=== PATIENT | female | born 1985 | race Caucasian/White ===

== ENCOUNTER → 2019-12-11 08:46 | Outpatient (BNVA) | payer OTHER, SELFPAY | PROVIDERS: PCP Nurse Practitioner Family; Visit Provider Dietitian, Registered ==

== ENCOUNTER 2019-12-23 08:20 | Outpatient (REF) | payer OTHER, SELFPAY ==
--- NOTE | 2019-12-23 | US_ITS ---
EXAMINATION: US COMPLETE ABDOMEN WITH LIVER ELASTOGRAPHY CLINICAL INFORMATION: Obesity. COMPARISON: None. TECHNIQUE: Real-time imaging of the abdominal viscera. Noninvasive ultrasound liver fibrosis assessment is performed using Amina ElastPQ point quantification shear wave elastography (pSWE) with a 5 MHz transducer. Multiple elastography samples are obtained. FINDINGS: PANCREAS: Normal. The visualized pancreatic head and body are normal in appearance. The remainder of the pancreas is obscured from visualization by the overlying bowel gas. ABDOMINAL AORTA: The proximal, middle, and distal aortic segments are normal in caliber. INFERIOR VENA CAVA: Visualized portions are normal. LIVER: Normal. The liver demonstrates normal size, contour and increased echogenicity. No focal lesion or intrahepatic biliary duct dilatation. The right lobe measures 17.4 cm in length. The left lobe measures 7.8 cm in length. There is normal antegrade flow seen in the main portal vein on Doppler exam. Shear wave elastography provides a median stiffness of 1.11 m/s (reference: normal median stiffness is 0.81 - 1.22 m/s). The IQR/median stiffness to assess sampling precision is 0.26 (reference: optimal IQR/median stiffness is under 0.3). GALLBLADDER: Gallbladder has been surgically removed. COMMON BILE DUCT: Normal in caliber measuring 0.6 cm in diameter. RIGHT KIDNEY: Normal. No hydronephrosis. No renal calculi or focal parenchymal lesions. The kidney measures 11.2 cm in maximum dimension. LEFT KIDNEY: Normal. No hydronephrosis. No renal calculi or focal parenchymal lesions. The kidney measures 11.0 cm in maximum dimension. SPLEEN: Normal. The spleen measures 8.7 cm in maximum dimension. FREE FLUID: None. IMPRESSION: 1. Hepatic steatosis with normal hepatopedal flow seen in the portal vein on Doppler exam. Gallbladder has been surgically removed. 2. Elastography: Liver elastography measurements are within normal (METAVIR Stage F0).
--- NOTE | 2019-12-23 09:20 | FL_ITS ---
EXAMINATION: XR GI SERIES CLINICAL INFORMATION: Obesity. Preop evaluation. COMPARISON: None TECHNIQUE: Routine upper GI air contrast study was performed. FINDINGS: Following oral administration of thick barium and effervescent granules, there is normal propagation bolus from the oral cavity through the pharynx, esophagus into stomach without any evidence of obstruction, narrowing or stricture. The gastroesophageal junction is widely patent. On placing patient supine and prone, there is a small hiatal hernia with mild reflux. In recumbent position, the patient had a single episode of large volume vomiting. The course, caliber and peristalsis of the stomach and the duodenal bulb is normal. FLUOROSCOPY TIME: 1.3 minutes DOSE AREA PRODUCT: 34.110 Gy-cm2 IMPRESSION: Small hiatal hernia with mild gastroesophageal reflux.
== END 2019-12-23 08:21 | disposition home or self-care (01) ==
LOC: HO.US 08:20
PROVIDERS: Visit Provider Surgery
DX: Z20.818 Contact with and (suspected) exposure to other bacterial communicable diseases (principal); E66.01 Morbid (severe) obesity due to excess calories; Z68.42 Body mass index [BMI] 45.0-49.9, adult; K21.9 Gastro-esophageal reflux disease without esophagitis; Z71.3 Dietary counseling and surveillance
CPT/HCPCS: 74240; 76705; 76981; 99213

== ENCOUNTER 2019-12-30 11:08 | Outpatient (REF) | payer OTHER, SELFPAY ==
[2019-12-30 12:32] LABS: MANUAL DIFF FLAG NO
[2019-12-30 12:42] LABS: Basophils Absolute Auto 0.1 X10*3/uL (0.0-0.2); Basophils Percent Auto 0.6 % (0-2); Eosinophils Absolute Auto 0.1 X10*3/uL (0.0-0.4); Eosinophils Percent Auto 1.4 % (0-4); Hematocrit 43.1 % (37-47); Hemoglobin 14.4 g/dl (12.0-16.0); Imm Gran Abs Auto 0.03 X10*3/uL (0.00-0.03); Imm Gran Pct Auto 0.4 % (0.0-0.4); Lymphocytes Absolute Auto 2.5 X10*3/uL (1.2-4.9); Lymphocytes Percent Auto 31.8 % (20-40); Mean Corpuscular HGB Conc 33.4 g/dl (31.0-35.0); Mean Corpuscular Hemoglobin 30.1 pg (27.0-33.0); Mean Platelet Volume 12.3 fL (9.4-12.3); Monocytes Absolute Auto 0.5 X10*3/uL (0.1-1.2); Monocytes Percent Auto 6.7 % (2-11); Neutrophils Absolute Auto 4.6 X10*3/uL (2.0-8.3); Neutrophils Percent Auto 59.1 % (45-73); Platelet Count 218 X10*3/uL (160-400); Red Blood Count 4.79 X10*6/uL (4.20-5.50); Red Cell Distribution Width 12.5 % (11.0-16.0); White Blood Count 7.8 X10*3/uL (4.8-10.8)
[2019-12-30 13:13] LABS: Alanine Aminotransferase 29 U/L (0-31); Albumin Level 4.5 g/dL (3.5-5.0); Alkaline Phosphatase 79 U/L (39-117); Anion Gap 17 (12-20); Aspartate Amino Transferase 18 U/L (5-31); Bilirubin Total 0.5 mg/dL (0.0-1.0); Blood Urea Nitrogen 12 mg/dL (9-16); C Reactive Protein 0.68 mg/dL (< or = 0.50); Calcium 9.2 mg/dL (8.4-10.2); Carbon Dioxide 21 mmol/L (22-29); Chloride 104 mmol/L (96-108); Cholesterol 155 mg/dL; Estimated Glomerular Filt Rate > 60; Glucose Random 90 mg/dL (60-115); HDL Cholesterol 53 mg/dL; Iron 68 mcg/dL (30-160); LDL Cholesterol Calculated 91 mg/dl; Percent Iron Saturation 19 % (15-50); Potassium 4.3 mmol/l (3.3-5.1); Sodium 138 mmol/L (135-145); Total Iron Binding Capacity 360 mcg/dL (228-428); Total Protein 7.8 g/dL (6.5-8.0); Triglycerides 58 mg/dL; Unsaturated Iron Binding 292 ug/dL
[2019-12-30 13:24] LABS: Ferritin 32 ng/mL (10-122); Vitamin D 25-OH Total 8.4 ng/mL (>30)
[2019-12-30 13:44] LABS: Estimated Average Glucose 91 mg/dL; Hemoglobin A1c % 4.8 %
[2019-12-30 14:23] LABS: Folate 11.1 ng/mL (> or = 4.0); Vitamin B12 429 pg/mL (200-900)
[2019-12-31 12:51] LABS: Insulin Level Total 8.2 uIU/mL
[2019-12-31 21:21] LABS: Calcium (PTHI) 9.7 mg/dL (8.6-10.2); PTHI 42 pg/mL (14-64)
[2020-01-02 14:42] LABS: Zinc 85 mcg/dL (60-130)
[2020-01-03 13:11] LABS: Vitamin A 29 mcg/dL (38-98); Vitamin B1 8 nmol/L (8-30)
== END 2019-12-30 11:09 | disposition home or self-care (01) ==
LOC: HO.LAB 11:08
PROVIDERS: Visit Provider Surgery
DX: E66.01 Morbid (severe) obesity due to excess calories (principal)
CPT/HCPCS: 36415; 80053; 80061; 82306; 82607; 82728; 82746; 83036; 83525; 83540; 83970; 84425; 84443; 84590; 84630; 85025; 86140

== ENCOUNTER → 2020-01-08 08:26 | Outpatient (BNVA) | payer OTHER, SELFPAY | PROVIDERS: PCP Nurse Practitioner Family; Visit Provider Dietitian, Registered | DX: Z76.89 Persons encountering health services in other specified circumstances (principal) ==

== ENCOUNTER → 2020-01-15 08:57 | Outpatient (BNVA) | payer OTHER, SELFPAY | PROVIDERS: PCP Nurse Practitioner Family; Visit Provider Physician Assistant | DX: Z76.89 Persons encountering health services in other specified circumstances (principal) ==

== ENCOUNTER → 2020-01-21 08:20 | Outpatient (BNVA) | payer OTHER, SELFPAY | PROVIDERS: PCP Nurse Practitioner Family; Referring Provider Nurse Practitioner Family; Visit Provider Dietitian, Registered | DX: Z76.89 Persons encountering health services in other specified circumstances (principal) ==

== ENCOUNTER → 2020-01-29 08:07 | Outpatient (BNVA) | payer OTHER, SELFPAY | PROVIDERS: PCP Nurse Practitioner Family; Referring Provider Nurse Practitioner Family; Visit Provider Surgery | DX: Z76.89 Persons encountering health services in other specified circumstances (principal) ==

== ENCOUNTER 2020-01-31 09:35 | Outpatient (REF) | payer OTHER, SELFPAY ==
--- NOTE | 2020-01-31 09:38 | CT_ITS ---
EXAMINATION: CT ABDOMEN AND PELVIS WITH CONTRAST CLINICAL INFORMATION: Moderate, severe obesity. COMPARISON: None TECHNIQUE: Multidetector volumetric images were obtained from the superior aspect of the liver through the pubic symphysis following administration 85 mL of Omnipaque 350 intravenous contrast. Sagittal and coronal reformatted images were obtained on the technologist's workstation. Oral contrast: No This CT examination was performed using dose optimization techniques as appropriate, variously including the following: *Automated exposure control *Adjustment of mA and/or kV according to patient size (this includes techniques or standardized protocols for targeted exams where dose is matched to indication/reason for exam; i.e. extremities or head) *Use of iterative reconstruction technique DLP: 977 mGy-cm FINDINGS: LUNG BASES: The lung bases are clear. The heart size is normal. There is a small hiatal hernia. LIVER, GALLBLADDER, AND BILIARY TREE: The liver is normal in size, shape, and attenuation. There is a punctate calcification of right hepatic lobe. No focal lesion seen. The gallbladder has been surgically removed. PANCREAS: Unremarkable. SPLEEN: Unremarkable. ADRENAL GLANDS: Unremarkable. KIDNEYS AND URETERS: The kidneys are normal in size, shape, and attenuation. No hydronephrosis, hydroureter, or calculi seen. No perinephric stranding. BLADDER: Unremarkable. GASTROINTESTINAL TRACT: There is oral contrast opacifying colon and small bowel loops which are normal caliber. No obstruction or narrowing seen. No inflammatory process seen. ABDOMINAL WALL: No significant hernia is appreciated. LYMPH NODES: Normal. VASCULAR: There is a prominent right ovarian vein. The abdominal aorta is normal caliber. PELVIC VISCERA: The uterus is anteverted. There are small hypodense left ovarian lesions, likely cysts that measure 4 Hounsfield units. Largest cyst measures 1.5 cm. OSSEOUS STRUCTURES: No lytic or sclerotic process seen. CT/CT abdomen pelvis w con IMPRESSION: No acute intra-abdominal process seen. Small hiatal hernia, cholecystectomy change and left ovarian small cysts.
[2020-01-31] MEDS: iohexoL 350 MG/ML 100 ML INFUS..BTL 85 ML IV (14:15)
== END 2020-01-31 09:36 | disposition home or self-care (01) ==
LOC: HO.CT 09:35
PROVIDERS: Visit Provider Surgery
DX: R10.11 Right upper quadrant pain (principal); Z98.84 Bariatric surgery status
CPT/HCPCS: 74177; Q9967

== ENCOUNTER → 2020-02-21 08:09 | Outpatient (BNVA) | payer OTHER, SELFPAY | PROVIDERS: Visit Provider Dietitian, Registered | DX: Z76.89 Persons encountering health services in other specified circumstances (principal) ==

== ENCOUNTER → 2020-03-11 08:18 | Outpatient (BNVA) | payer OTHER, SELFPAY | PROVIDERS: Visit Provider Dietitian, Registered | DX: Z76.89 Persons encountering health services in other specified circumstances (principal) ==

== ENCOUNTER 2020-10-01 14:29 | Emergency (ER) | payer OTHER, SELFPAY ==
[2020-10-01 14:51] VITALS: BP 136/74; PULSE 90; RESP 18; TEMP 36.8; O2SAT 99; BMI 45.7
--- NOTE | 2020-10-01 17:12 | ED_ITS ---
HPI - Headache General Chief Complaint: Headache Stated Complaint: Headaches facial pain Time Seen by Provider: 10/01/20 16:49 Source: patient Mode of arrival: ambulatory Limitations: no limitations History of Present Illness HPI Narrative: 34-year-old female here with complaints of several days of cough sore throat, sinus congestion and pressure now with right-sided headache with pressure and pain in the sinuses. Yesterday had some diarrhea and vomiting but none today. No abdominal pain, fevers, chills. Patient has not received her COVID vaccine. She denies any known sick contacts Related Data Home Medications Medication Instructions Recorded Confirmed acetaminophen 500 mg tablet 500 mg PO Q6H PRN 01/10/20 (Tylenol Extra Strength) butalbital 50 mg-acetaminophen 325 1 cap PO Q4H PRN 01/10/20 mg-caffeine 40 mg-codeine 30 mg cap Previous Rx's Medication Instructions Recorded docusate sodium 100 mg capsule 100 mg PO DAILY #30 cap 01/10/20 (Colace) pantoprazole 40 mg tablet,delayed 40 mg PO DAILY #30 tab 01/10/20 release pantoprazole 40 mg tablet,delayed 40 mg PO DAILY #30 tab 01/27/20 release amoxicillin 875 mg-potassium 1 tab PO Q12H #14 tab 10/01/20 clavulanate 125 mg tablet (Augmentin) Allergies Allergy/AdvReac Type Severity Reaction Status Date / Time aspirin [ASA] Allergy Unknown SWELLING Unverified 11/21/19 19:44 Review of Systems Review of Systems: Yes all other systems are reviewed and are negative Constitutional: Constitutional: Reports no additional constitutional complaints, Denies body ache(s), Denies chills, Denies fever(s), Reports headache(s) and Denies weakness Eyes: Eyes: Reports no additional eye complaints and Denies change in vision ENT: Reports system reviewed and no additional complaints, except as documented, Denies dizziness, Reports facial pain, Reports headache(s), Reports nasal congestion, Denies nasal discharge, Denies neck pain, Reports sinus pain and Reports sinus pressure Cardiovascular: Cardiovascular: Reports no additional cardiovascular complaints, Denies chest pain, Denies leg edema and Denies dyspnea Respiratory: Respiratory: Reports no additional respiratory complaints, Denies cough and Denies dyspnea Gastrointestinal: Gastrointestinal: Reports no additional gastrointestinal complaints, Denies abdominal pain, Reports diarrhea, Denies nausea and Reports vomiting Genitourinary: Genitourinary: Reports no additional female genitourinary comp laints and Denies urinary incontinence Musculoskeletal: Musculoskeletal: Reports no additional musculoskeletal complaints, Denies back pain, Denies arthralgias, Denies joint swelling, Denies neck pain, Denies numbness and Denies tingling Integumentary/Breasts: Skin/Breast: Reports system reviewed and no additional complaints, except as docu and Denies rash Neurologic: Reports system reviewed and no additional complaints, except as documented, Denies Abnormal speech present, Denies dizziness, Reports headache(s), Denies numbness, Denies tingling and Denies weakness PMFSH Past Medical History Attestation statement: The following information was validated with the patient. Source: old records reviewed and nursing notes reviewed Medical History Morbid obesity Surgical History S/P laparoscopic cholecystectomy S/P tubal ligation Family History Family History Father Lung cancer Mother No problems noted. Sister No problems noted. Sister No problems noted. Son No problems noted. Daughter No problems noted. Social History Social History Alcohol intake: never Advance Directives: No Advance Directives Information Provided: No Patient : No Physical Exam Vital Signs: Vital Signs: Last Vital Signs Temp 98.2 F 10/01/20 14:51 Pulse 90 10/01/20 14:51 Resp 18 10/01/20 14:51 BP 136/74 10/01/20 14:51 Pulse Ox 99 10/01/20 14:51 Body Mass Index 45.7 Const: General: cooperative, healthy appearing, comfortable and no acute distress Orientation/consciousness: patient oriented x3 Limitations: no limitations HENMT: Head: Yes normal to inspection Ears: hearing grossly normal bilaterally and TM's normal bilaterally General nose exam: Normal external nose present and Abnormal mucous membranes and turbinates present Face and sinus: Yes normal facial exam, Yes sinus tenderness (Right maxillary frontal) and Yes Facial tenderness on exam of face and sinuses Mouth: Normal oral and palatal mucosa present Throat: Yes posterior oropharynx normal, Yes tonsils normal and Yes uvula midline Eyes: General: appearance normal, both eyes and all related structures Pupils: Equal, round and reactive pupils present Neck: Neck: Yes normal visual inspection, Yes full ROM and Yes no lymphadenopathy Chest: Chest palpation & inspection: normal inspection of the chest Resp: Effort & Inspection: normal respiratory effort Auscultation: clear to auscultation bilaterally Cardio: Rate: regular rate Rhythm: regular rhythm Peripheral pulses: Peripheral pulses 2+ throughout GI: Inspection: Yes normal to inspection Palpation (GI): Soft to palpation and nontender Auscultation: normal bowel sounds Back/Spine/Pelvis: Thoracic/Lumbar Spine: thoracic and lumbar spine normal to inspection Skin: General skin exam: no rashes or lesions noted Neuro: General: patient oriented x3, no focal motor deficits and normal sensation to monofilament Cranial nerves: Yes Equal, round and reactive pupils present Cognition (Neuro): normal cognition Speech: No Abnormal speech present Gait exam (Neuro): Normal gait present Motor exam (neuro): 5/5 motor strength present throughout Extrem: General: Yes normal to inspection Course Course Course Narrative: 34-year-old female here with several days of sinus pressure, sinus pain, nasal congestion, headache, vomiting, diarrhea now with persistent right-sided headache and more focal pain in the right sinus. Exam is consistent with sinusitis. Likely underlying virus which is triggered symptoms.. Patient feels like she strained to have a migraine. Normal neuro exam. Will check COVID screen. Give dose of Augmentin and Fioricet here. 1839-Continued IRWIN, likely from sinusitis but patient has h/o migraines and feels similar. Will give benadryl, reglan, NSB and re-asssess. 1899-Sign out to Belkis VALE pending above. MDM - Headache Medical Records Attestation: I reviewed the patient's medical records. Lab Data Attestation: I reviewed the patient's lab results. Labs: Lab Results 10/01/20 Range/Units 17:11 COVID-19 (FABIO) Negative (Negative) COVID-19 Clin Com See Note Discharge Plan Discharge Clinical Impression: Sinusitis Patient Disposition: Home, Self-Care Instructions: Sinusitis (ED) Additional Instructions: Increase fluids, rest Covid screen negative Prescriptions: New amoxicillin-pot clavulanate [Augmentin] 875-125 mg tablet 1 tab PO Q12H Qty: 14 RF: 0 No Action pantoprazole 40 mg tablet,delayed release (DR/EC) 40 mg PO DAILY Qty: 30 RF: 2 acetaminophen [Tylenol Extra Strength] 500 mg tablet 500 mg PO Q6H PRNRF: 0 suvwbgxleh-amdijyypze-vch-cod [id number] mg capsule 1 cap PO Q4H PRNRF: 0 docusate sodium [Colace] 100 mg capsule 100 mg PO DAILY Qty: 30 RF: 2 pantoprazole 40 mg tablet,delayed release (DR/EC) 40 mg PO DAILY Qty: 30 RF: 2 Referrals: Physician,Unknown [Primary Care Provider] - 2 days
[2020-10-01] MEDS: Butalb/Acetamin/Caff 50/325/40 TABLET 1 TAB PO (17:33)
[2020-10-01] MEDS: Amoxicillin/Potassium Clav 875 MG TABLET PO (17:33)
[2020-10-01 17:34] LABS: COVID-19 Test Negative (Negative)
[2020-10-01] MEDS: diphenhydrAMINE HCL 50 MG/ML VIAL 25 MG IVPUSH (19:28)
[2020-10-01] MEDS: Metoclopramide HCl 10 MG/2 ML VIAL IVPUSH (19:28)
[2020-10-01] MEDS: 0.9 % Sodium Chloride 1,000 ML 999 ML IV (19:28)
[2020-10-01 19:29] VITALS: BP 129/74; PULSE 86; RESP 18; O2SAT 98
== END 2020-10-01 20:39 | disposition home or self-care (01) ==
PROVIDERS: Nurse Practitioner Family; Emergency Provider Emergency Medicine Emergency Medical Services
DX: J32.9 Chronic sinusitis, unspecified (principal); Z20.822 Contact with and (suspected) exposure to COVID-19; Z79.899 Other long term (current) drug therapy
CPT/HCPCS: 36415; 87635; 96365; 96375; 99284; J1200; J2765

== ENCOUNTER → 2021-03-19 11:14 | Outpatient (BNVA) | payer OTHER, SELFPAY | PROVIDERS: Visit Provider Physician Assistant Surgical ==

== ENCOUNTER 2021-04-21 10:16 | Outpatient (REF) | payer OTHER, SELFPAY ==
[2021-04-22 14:32] LABS: H Pylori Breath Test Negative (Negative)
== END 2021-04-21 10:17 | disposition home or self-care (01) ==
LOC: HO.LNP 10:16
PROVIDERS: Physician Assistant Surgical; PCP Physician Assistant; Referring Provider Physician Assistant; Visit Provider Physician Assistant
DX: Z01.818 Encounter for other preprocedural examination (principal)
CPT/HCPCS: 83013; 99211

== ENCOUNTER 2021-05-03 05:32 | Emergency (ER) | payer OTHER, SELFPAY ==
[2021-05-03 05:36] VITALS: BMI 44.1
[2021-05-03 05:40] VITALS: BP 117/72; PULSE 97; RESP 18; TEMP 36.8; O2SAT 97
[2021-05-03] MEDS: Lidocaine HCl 2 % MPF 5 ML VIAL 15 ML INFILTRATI (06:20)
[2021-05-03] MEDS: Ketamine HCl 500 MG/5 ML VIAL 200 MG IM ×2 (06:20→06:50)
--- NOTE | 2021-05-03 06:37 | PC.NURSE ---
provider into assess pt, medication per mar.
--- NOTE | 2021-05-03 06:44 | PC.NURSE ---
provider in to drain abscess. Air cleaned and dried.
[2021-05-03] MEDS: HYDROmorphone HCl 1 MG/ML SYRINGE IM (06:45)
--- NOTE | 2021-05-03 06:46 | ED_ITS ---
HPI - Skin/Abscess/Foreign Bdy General Chief complaint: Skin/Abscess/Foreign Body Stated complaint: abscess Time Seen by Provider: 05/03/21 05:58 Source: patient Mode of arrival: ambulatory Limitations: no limitations History of Present Illness HPI narrative: Patient comes to emergency room complaining of left Bartholin's cyst. Patient states it has been there for 6 days. Patient denies fever chills. Patient t ried popping it herself approximately 2 days ago. Patient has been using warm compresses Related Data Home Medications Medication Instructions Recorded Confirmed acetaminophen 500 mg tablet 500 mg PO Q6H PRN 01/10/20 (Tylenol Extra Strength) butalbital 50 mg-acetaminophen 325 1 cap PO Q4H PRN 01/10/20 mg-caffeine 40 mg-codeine 30 mg cap Previous Rx's Medication Instructions Recorded docusate sodium 100 mg capsule 100 mg PO DAILY #30 cap 01/10/20 (Colace) pantoprazole 40 mg tablet,delayed 40 mg PO DAILY #30 tab 01/10/20 release pantoprazole 40 mg tablet,delayed 40 mg PO DAILY #30 tab 01/27/20 release amoxicillin 875 mg-potassium 1 tab PO Q12H #14 tab 10/01/20 clavulanate 125 mg tablet (Augmentin) oxycodone 5 mg tablet 5 mg PO BID PRN #7 tab 05/03/21 Allergies Allergy/AdvReac Type Severity Reaction Status Date / Time aspirin [ASA] Allergy Unknown SWELLING Verified 05/03/21 05:36 Review of Systems Review of Systems: Constitutional : No Weight loss, No Fever, No Chills, No Night Sweats, No Fatigue, No Malaise ENT/Mouth : No Hearing loss, No Ear Pain, No Nasal Congestion, No Sinus Pain, No Hoarseness, No sore throat, No Rhinorrhea, No Swallowing Difficulty Eyes: No Eye Pain, No Swelling, No Redness, No Foreign Body, No Discharge, No Vision Changes Cardiovascular : No Chest Pain, No SOB, No Dyspnea on Exertion, No Orthopnea, No Edema, No Palpitations Respiratory : No Cough, No Sputum, No Wheezing, No Smoke Exposure, No Dyspnea Gastrointestinal : No Nausea, No Vomiting, No Diarrhea, No Constipation, No abdominal Pain, No Hematochezia, No Melena Genitourinary : Complaining of a Bartholin's cyst in the left labia, No Dysuria, No Urinary Frequency, No Hematuria, No Urinary Incontinence, No Urgency, No Flank Pain, No Urinary Flow Changes, No Hesitancy Musculoskeletal : No joint pain, No Myalgias, No Joint Swelling Skin : No Skin Lesions, No rash Neuro : No Weakness, No Numbness, No Paresthesias, No Loss of Consciousness, No Dizziness, No Headache Psych : No Anxiety/Panic, No Depression, No SI/HI/AH/VH, No Social Issues, Heme/Lymph: No Bruising, No Bleeding,No Lymphadenopathy Endocrine : No Polyuria, No Polydipsia, No Temperature Intolerance [facility] Past Medical History Medical History Morbid obesity Surgical History S/P laparoscopic cholecystectomy S/P tubal ligation Family History Family History Father Lung cancer Mother No problems noted. Sister No problems noted. Sister No problems noted. Son No problems noted. Daughter No problems noted. Social History Social History Alcohol intake: never Patient Tobacco Use Status: Never used Tobacco Use of substances other than those prescribed or required for medical reasons: No Advance Directives: No Advance Directives Information Provided: Yes Physical Exam Vital Signs: Vital Signs: Last Vital Signs Temp 98.3 F 05/03/21 05:40 Pulse 90 05/03/21 06:47 Resp 18 05/03/21 06:47 BP 134/78 05/03/21 06:47 Pulse Ox 94 05/03/21 06:47 BMI result Body Mass Index 44.1 Const: Other: Appearance: Alert. Oriented X3. No acute distress. Eyes: Pupils equal, round and reactive to light. ENT: Pharynx normal. Neck: Normal inspection. Neck supple. No lymph nodes noted. No crepitus CVS: Normal heart rate and rhythm. Pulses normal. Normal S1 and S2 Respiratory: No respiratory distress. Breath sounds normal. No Wheezing. No rales Abdomen: Soft and nontender. No rigidity. No distention. : Patient has a large Bartholin's cyst, approximately 4 cm x 4 cm, very tender to touch Skin: Skin warm and dry. Normal skin color. Normal skin turgor. Extremities: No lower extremity edema. No lower extremity edema. No Lacerations. No Rash Neuro: Oriented X 3. No motor deficit. No sensory deficit. Moving all extermities. No slurred speech. Course Course Course Narrative: Patient states that she is very anxious, patient states that she would like to be sedated. I discussed with the patient again use IM ketamine, patient agreed and signed consent for procedure, drainage of left Bartholin's cyst. Patient needed 400 mg of ketamine, 1 mg of Dilaudid, local lidocaine Cyst was drained successfully. I discussed with the patient that she needs to follow-up with her OBGYN. The drain will have to stay approximately 2 weeks, possibly more. Patient is currently recuperating. Patient is awake, she may be discharged. Physician observation started at 07:00 Sign-out given to Dr. Metzger Procedures Abscess I/D Site: bartholin's gland Side (if applicable): left Sedation/analgesia: other (Ketamine for 400 mg IM) Local Anesthetic: lidocaine 2% Amount of anesthesia used (mL): 7 Technique: incised with blade Amount of fluid expressed (mL): 40 Sent for culture/gram staining?: No Irrigation: No Packing used?: vick drain Complications: pain Discharge Plan Discharge Clinical Impression: Abscess of Bartholin's gland Patient Disposition: Home, Self-Care Instructions: Bartholin Cyst (ED), Incision and Drainage (ED) Additional Instructions: The drain needs to stay in place for at least the next 2 weeks. Please follow- up with your OBGYN. Please call in the next couple of days to schedule an appointment. Please follow-up with your primary care physician tomorrow. If you have any worsening or new symptoms, please return to the emergency room or call 911 Prescriptions: New oxycodone 5 mg tablet 5 mg PO BID PRN (Reason: pain) Qty: 7 0RF No Action pantoprazole 40 mg tablet,delayed release (DR/EC) 40 mg PO DAILY Qty: 30 2RF amoxicillin-pot clavulanate [Augmentin] 875-125 mg tablet 1 tab PO Q12H Qty: 14 0RF acetaminophen [Tylenol Extra Strength] 500 mg tablet 500 mg PO Q6H PRN0RF anhkulkeni-gozqucvgxo-eis-cod 20-707-33-30 mg capsule 1 cap PO Q4H PRN0RF docusate sodium [Colace] 100 mg capsule 100 mg PO DAILY Qty: 30 2RF pantoprazole 40 mg tablet,delayed release (DR/EC) 40 mg PO DAILY Qty: 30 2RF Referrals: Genaro Johnson MD [Physician] - 2 days Stand Alone Forms: Work/School Release
[2021-05-03 06:47] VITALS: BP 134/78; PULSE 90; RESP 18; O2SAT 94
[2021-05-03 07:16] VITALS: BP 112/59; PULSE 88; RESP 14; TEMP 36.8; O2SAT 93
--- NOTE | 2021-05-03 08:22 | PC.NURSE ---
pt vomited sm amt of yellow fluid, 02 sat 94% on 2l/m via n/c.
[2021-05-03] MEDS: Ondansetron ODT 4 MG TAB.RAPDIS TRANSLINGU (09:20)
--- NOTE | 2021-05-03 09:20 | PC.NURSE ---
pt c/o nausea, med x 1 with zofran 4mg odt
[2021-05-03 11:16] VITALS: BP 106/56; PULSE 82; RESP 17; TEMP 36.7; O2SAT 97
[2021-05-03] MEDS: 0.9 % Sodium Chloride 1,000 ML 999 ML IV (11:21)
[2021-05-03] MEDS: diphenhydrAMINE HCL 50 MG/ML VIAL 25 MG IVPUSH (11:22)
[2021-05-03] MEDS: Metoclopramide HCl 10 MG/2 ML VIAL 5 MG IVPUSH (11:22)
[2021-05-03 12:37] VITALS: BP 111/54; PULSE 89; RESP 17; TEMP 36.8; O2SAT 100
== END 2021-05-03 13:59 | disposition home or self-care (01) ==
PROVIDERS: Emergency Provider Emergency Medicine
DX: N75.0 Cyst of Bartholin's gland (principal); R11.2 Nausea with vomiting, unspecified; Z98.890 Other specified postprocedural states
CPT/HCPCS: 56420; 96361; 96372; 96374; 96375; 99284; J1170; J1200; J2765

== ENCOUNTER → 2021-05-07 08:06 | Outpatient (BNVA) | payer OTHER, SELFPAY | PROVIDERS: Visit Provider Surgery ==

== ENCOUNTER 2021-05-10 10:17 | Outpatient (REF) | payer OTHER, SELFPAY ==
--- NOTE | ~2021-05-10 | XR_ITS ---
EXAMINATION: XR chest 2V CLINICAL INFORMATION: Reason for Exam E66.01 - Morbid (severe) obesity due to excess calories COMPARISON: None TECHNIQUE: 2 views of the chest XR/XR chest 2V FINDINGS/IMPRESSION: Clear lungs. No pneumothorax. No pleural effusion. Normal cardiomediastinal silhouette. Right upper quadrant cholecystectomy clips.
--- NOTE | 2021-05-10 11:22 | ECG_ITS ---
Test Reason : E66.01 Blood Pressure : / mmHG Vent. Rate : 081 BPM Atrial Rate : 081 BPM P-R Int : 122 ms QRS Dur : 080 ms QT Int : 370 ms P-R-T Axes : 037 006 031 degrees QTc Int : 429 ms Normal sinus rhythm Normal ECG No previous ECGs available Referred By: Cristhian Elias Electronically Signed By:LUPIS ONOFRE MD
== END 2021-05-10 10:18 | disposition home or self-care (01) ==
LOC: HO.XRAY 10:17
PROVIDERS: PCP Physician Assistant; Visit Provider Dietitian, Registered
DX: E66.01 Morbid (severe) obesity due to excess calories (principal); K21.9 Gastro-esophageal reflux disease without esophagitis; Z71.3 Dietary counseling and surveillance
CPT/HCPCS: 71046; 93005; 97802

== ENCOUNTER → 2021-06-02 08:08 | Outpatient (BNVA) | payer OTHER, SELFPAY | PROVIDERS: PCP Physician Assistant; Referring Provider Surgery; Visit Provider Dietitian, Registered | DX: E66.01 Morbid (severe) obesity due to excess calories (principal); Z68.41 Body mass index [BMI] 40.0-44.9, adult | CPT/HCPCS: 97803 ==

== ENCOUNTER 2021-06-03 09:41 | Outpatient (REF) | payer OTHER, SELFPAY ==
[2021-06-03 10:35] LABS: MANUAL DIFF FLAG NO
[2021-06-03 10:59] LABS: Basophils Percent Auto 0.5 % (0-2); Eosinophils Absolute Auto 0.1 X10*3/uL (0.0-0.4); Eosinophils Percent Auto 1.6 % (0-4); Hematocrit 43.4 % (37.0-47.0); Hemoglobin 14.6 g/dl (12.0-16.0); Imm Gran Abs Auto 0.02 X10*3/uL (0.00-0.03); Imm Gran Pct Auto 0.3 % (0.0-0.4); Lymphocytes Absolute Auto 2.5 X10*3/uL (1.2-4.9); Lymphocytes Percent Auto 33.8 % (20-40); Mean Corpuscular HGB Conc 33.6 g/dl (31.0-35.0); Mean Corpuscular Hemoglobin 30.9 pg (27.0-33.0); Mean Corpuscular Volume 91.8 fL (80.0-98.0); Mean Platelet Volume 12.2 fL (9.4-12.3); Monocytes Absolute Auto 0.5 X10*3/uL (0.1-1.2); Monocytes Percent Auto 6.2 % (2-11); Neutrophils Absolute Auto 4.2 x10*3/uL (2.0-8.3); Neutrophils Percent Auto 57.6 % (45-73); Platelet Count 180 X10*3/uL (160-400); Red Blood Count 4.73 X10*6/uL (4.20-5.50); Red Cell Distribution Width 13.8 % (11.0-16.0); White Blood Count 7.3 X10*3/uL (4.8-10.8)
[2021-06-03 11:19] LABS: Estimated Average Glucose 88 mg/dL; Hemoglobin A1c % 4.7 %
[2021-06-03 11:41] LABS: Alanine Aminotransferase 21 U/L (0-31); Albumin Level 4.6 g/dL (3.5-5.0); Alkaline Phosphatase 81 U/L (39-117); Anion Gap 13 (12-20); Aspartate Amino Transferase 13 U/L (5-31); Bilirubin Total 0.7 mg/dL (0.0-1.0); Blood Urea Nitrogen 11 mg/dL (9-16); C Reactive Protein 0.16 mg/dL (< or = 0.50); Calcium 9.5 mg/dL (8.4-10.2); Carbon Dioxide 22 mmol/L (22-29); Chloride 107 mmol/L (96-108); Cholesterol 154 mg/dL; Estimated Glomerular Filt Rate > 60; Glucose Random 97 mg/dL (60-115); HDL Cholesterol 46 mg/dL; Iron 113 mcg/dL (30-160); LDL Cholesterol Calculated 95 mg/dl; Percent Iron Saturation 32 % (15-50); Potassium 4.3 mmol/L (3.3-5.1); Sodium 138 mmol/L (135-145); Total Iron Binding Capacity 351 mcg/dL (228-428); Total Protein 7.8 g/dL (6.5-8.0); Triglycerides 69 mg/dL; Unsaturated Iron Binding 238 ug/dL
[2021-06-03 12:06] LABS: Folate 10.9 ng/mL (> or = 4.0); Vitamin B12 328 pg/mL (200-900)
[2021-06-03 12:08] LABS: Ferritin 47 ng/mL (10-122); Insulin 14 uU/mL (2-29); TSH reflex Free T4 2.15 uIU/mL (0.32-4.0); Vitamin D 25-OH Total 10.7 ng/mL (>30)
[2021-06-04 14:32] LABS: Calcium (PTHI) 9.4 mg/dL (8.6-10.2); PTHI 53 pg/mL (16-77)
[2021-06-08 07:16] LABS: Zinc 105 mcg/dL (60-130)
[2021-06-08 16:56] LABS: Vitamin B1 7 nmol/L (8-30)
[2021-06-09 10:46] LABS: Vitamin A 37 mcg/dL (38-98)
== END 2021-06-03 09:42 | disposition home or self-care (01) ==
LOC: HO.LAB 09:41
PROVIDERS: Visit Provider Physician Assistant Surgical
DX: E66.01 Morbid (severe) obesity due to excess calories (principal)
CPT/HCPCS: 36415; 80053; 80061; 82306; 82607; 82728; 82746; 83036; 83525; 83540; 83970; 84425; 84443; 84590; 84630; 85025; 86140

== ENCOUNTER → 2021-06-07 08:06 | Outpatient (BNVA) | payer OTHER, SELFPAY | PROVIDERS: Visit Provider Surgery | DX: Z13.89 Encounter for screening for other disorder (principal) ==

== ENCOUNTER → 2021-06-22 11:21 | Outpatient (BNVA) | payer OTHER, SELFPAY | PROVIDERS: Visit Provider Physician Assistant | DX: Z13.89 Encounter for screening for other disorder (principal) ==

== ENCOUNTER → 2021-07-02 08:12 | Outpatient (BNVA) | payer OTHER, SELFPAY | PROVIDERS: Visit Provider Surgery | DX: E66.01 Morbid (severe) obesity due to excess calories (principal) ==

== ENCOUNTER 2021-07-06 07:47 | Inpatient (IN) | payer OTHER, SELFPAY ==
[2021-06-29 15:07] VITALS: BMI 41.8
[2021-07-03 09:44] LABS: MANUAL DIFF FLAG NO
[2021-07-03 10:01] LABS: Basophils Absolute Auto 0.1 X10*3/uL (0.0-0.2); Basophils Percent Auto 0.6 % (0-2); Eosinophils Absolute Auto 0.1 X10*3/uL (0.0-0.4); Eosinophils Percent Auto 0.9 % (0-4); Hemoglobin 14.2 g/dl (12.0-16.0); Imm Gran Abs Auto 0.03 X10*3/uL (0.00-0.03); Imm Gran Pct Auto 0.4 % (0.0-0.4); Lymphocytes Absolute Auto 2.3 X10*3/uL (1.2-4.9); Lymphocytes Percent Auto 28.2 % (20-40); Mean Corpuscular HGB Conc 33.8 g/dl (31.0-35.0); Mean Corpuscular Hemoglobin 29.6 pg (27.0-33.0); Mean Corpuscular Volume 87.7 fL (80.0-98.0); Mean Platelet Volume 12.1 fL (9.4-12.3); Monocytes Absolute Auto 0.5 X10*3/uL (0.1-1.2); Monocytes Percent Auto 6.1 % (2-11); Neutrophils Absolute Auto 5.2 x10*3/uL (2.0-8.3); Neutrophils Percent Auto 63.8 % (45-73); Platelet Count 189 X10*3/uL (160-400); Red Blood Count 4.79 X10*6/uL (4.20-5.50); Red Cell Distribution Width 13.4 % (11.0-16.0); White Blood Count 8.2 X10*3/uL (4.8-10.8)
[2021-07-03 10:08] LABS: INTERNATIONAL NORM RATIO 1.1 (0.9-1.1); Prothrombin Time 12.4 SEC (9.9-13.0)
[2021-07-03 10:11] LABS: Partial Thromboplastin Time 32.6 SEC (24.1-38.0)
[2021-07-03 10:15] LABS: Estimated Average Glucose 94 mg/dL; Hemoglobin A1c % 4.9 %
[2021-07-03 10:34] LABS: Alanine Aminotransferase 19 U/L (0-31); Albumin Level 4.3 g/dL (3.5-5.0); Alkaline Phosphatase 75 U/L (39-117); Anion Gap 15 (12-20); Aspartate Amino Transferase 19 U/L (5-31); Bilirubin Total 0.9 mg/dL (0.0-1.0); Blood Urea Nitrogen 8 mg/dL (9-16); C Reactive Protein 0.25 mg/dL (< or = 0.50); Calcium 9.5 mg/dL (8.4-10.2); Carbon Dioxide 21 mmol/L (22-29); Chloride 106 mmol/L (96-108); Cholesterol 137 mg/dL; Estimated Glomerular Filt Rate > 60; Glucose Random 96 mg/dL (60-115); HDL Cholesterol 39 mg/dL; LDL Cholesterol Calculated 85 mg/dl; Potassium 4.5 mmol/L (3.3-5.1); Sodium 137 mmol/L (135-145); Total Protein 7.7 g/dL (6.5-8.0); Triglycerides 69 mg/dL
[2021-07-03 10:43] LABS: Insulin 8 uU/mL (2-29)
--- NOTE | 2021-07-03 15:25 | MHC.SHP ---
Pre-Procedural Eval Section A Date of Service: 07/03/21 The patient is an INPATIENT: No The History & Physical has been completed within 30 days and I have reviewed it.: Yes Section B Chief Complaint: obesity Relevant Family History (Specify if Yes): No Relevant Social History: None Present Medications: None Medical History: No relevant PMH History of Previous Operations: No relevant previous surgery Allergies: Allergies Allergy/AdvReac Type Severity Reaction Status Date / Time aspirin [ASA] Allergy Unknown SWELLING Verified 06/29/21 10:54 Review of Systems Sugical H&P ROS: Negative: Constitution, Cardiovascular, Respiratory, Neurological, Psychiatric, Hem-Onc, Allergic/Immunologic, Gastrointestinal, Genitourinary, Musculoskeletal, Integumentary, Endocrine and Eyes/Ears/Nose/Throat Exam Surgical H&P Exam: Normal: HEENT, Normal: Heart, Normal: Lungs, Normal: Extremities, Normal: Abdomen, Normal: Skin and Normal: Neurological Plan Diagnosis/Plan: Unchanged I have reviewed the history and physical and performed a pertinent physical examination on my patient. No changes have occurred unless specified.
--- NOTE | 2021-07-05 12:36 | P.CONAN_ITS ---
HPI - Anesthesia Eval Consult details Narrative: 35yo F for Gastrectomy Sleeve,EGD,poss diaphragmatic hernia,poss ventral hernia,poss open, PMFSH Active Problems Active Problems: All Active Problems (Updated 06/29/21 @ 15:19 by Miladis Multani RN) Constipation (Acute) GERD (gastroesophageal reflux disease) (Acute) Morbid obesity (Acute) Past Medical History Medical History (Updated 07/10/21 @ 00:03 by Jo Juarez) Asthma Constipation Depression Migraines Morbid obesity Steatosis, liver Family History Family History (Updated 05/04/21 @ 11:22 by Omayra Nassar LPN) Father Lung cancer Mother No problems noted. Sister No problems noted. Sister No problems noted. Son No problems noted. Daughter No problems noted. Surgical History Surgical History (Updated 07/06/21 @ 14:34 by Mary Zavala PA-C) S/P laparoscopic cholecystectomy S/P tubal ligation Social History Social History (Updated 05/04/21 @ 11:22 by Omayra Nassar LPN) Are you a primary medical care administrator to a significant other at home: No Do you presently have visiting nurse or other home services: No Alcohol intake: never Patient Tobacco Use Status: Never used Tobacco service: No Current occupational status: unemployed Meds Allergies Allergy/AdvReac Type Severity Reaction Status Date / Time aspirin [ASA] Allergy Unknown SWELLING Verified 06/29/21 10:54 morphine Allergy Hypotension Verified 07/06/21 08:30 Home Medications Medication Instructions Recorded Confirmed Last Taken Type acetaminophen 500 mg tablet 500 mg PO Q6H PRN 01/10/20 07/02/21 Unknown History (Tylenol Extra Strength) ondansetron HCl 4 mg tablet 4 mg PO Q12H PRN 07/06/21 07/06/21 Unknown History Exam Exam Date and Time: July 05, 2021 1236 Height,Weight and Vital Signs: Height 5 ft Weight 97.069 kg Pertinent Lab Results Pertinent Lab Results: Laboratory Tests 07/03/21 07/03/21 07/03/21 09:35 09:42 09:42 WBC 8.2 RBC 4.79 Hgb 14.2 Hct 42.0 MCV 87.7 MCH 29.6 MCHC 33.8 RDW 13.4 Plt Count 189 MPV 12.1 Immature Gran % (Auto) 0.4 Neut % (Auto) 63.8 Lymph % (Auto) 28.2 Gonzales % (Auto) 6.1 Eos % (Auto) 0.9 Baso % (Auto) 0.6 Lymph # (Auto) 2.3 Gonzales # (Auto) 0.5 Eos # (Auto) 0.1 Baso # (Auto) 0.1 Abs Immat Gran (auto) 0.03 Absolute Neuts (auto) 5.2 Absolute Nucleated RBC 0.000 Nucleated RBC % (auto) 0.0 PT 12.4 INR 1.1 APTT 32.6 Sodium Potassium Chloride Carbon Dioxide Anion Gap BUN Creatinine Estim Creat Clear Calc Estimated GFR Random Glucose Estimat Average Glucose Hemoglobin A1c % Insulin Level Calcium Total Bilirubin AST ALT Alkaline Phosphatase C-Reactive Protein Total Protein Albumin Triglycerides Cholesterol LDL Cholesterol, Calc HDL Cholesterol TSH Blood Type A Positive Antibody Screen NEGATIVE 07/03/21 07/03/21 09:42 09:42 WBC RBC Hgb Hct MCV MCH MCHC RDW Plt Count MPV Immature Gran % (Auto) Neut % (Auto) Lymph % (Auto) Gonzales % (Auto) Eos % (Auto) Baso % (Auto) Lymph # (Auto) Gonzales # (Auto) Eos # (Auto) Baso # (Auto) Abs Immat Gran (auto) Absolute Neuts (auto) Absolute Nucleated RBC Nucleated RBC % (auto) PT INR APTT Sodium 137 Potassium 4.5 Chloride 106 Carbon Dioxide 21 L Anion Gap 15 BUN 8 L Creatinine 0.70 Estim Creat Clear Calc 117.0 Estimated GFR > 60 Random Glucose 96 Estimat Average Glucose 94 Hemoglobin A1c % 4.9 Insulin Level 8 Calcium 9.5 Total Bilirubin 0.9 AST 19 D ALT 19 Alkaline Phosphatase 75 C-Reactive Protein 0.25 Total Protein 7.7 Albumin 4.3 Triglycerides 69 Cholesterol 137 LDL Cholesterol, Calc 85 HDL Cholesterol 39 TSH 1.90 Blood Type Antibody Screen Narrative Narrative: EKG 05/2021 Vent. Rate : 081 BPM ? ? Atrial Rate : 081 BPM ?? P-R Int : 122 ms? QRS Dur : 080 ms ? ? QT Int : 370 ms ? ? ? P-R-T Axes : 037 006 031 degrees ?? QTc Int : 429 ms ? Normal sinus rhythm Normal ECG No previous ECGs available Assessment and Plan Assessment Anesthesia Assessment: Chart Reviewed
[2021-07-05 13:03] LABS: COVID-19 Test Negative (Negative); IDNOW Serial# 55D5AD1C
[2021-07-06] VITALS (12 sets, daily range): BP systolic 112–139; BP diastolic 58–91; PULSE 82–96; RESP 16–20; TEMP 36.1–37.1; O2SAT 97–100
[2021-07-06] MEDS: Lactated Ringers 1,000 ML 999 ML IV (08:56)
[2021-07-06] MEDS: Lactated Ringers 1,000 ML 100 ML IVCONT ×3 (08:56→23:25)
--- NOTE | 2021-07-06 11:43 | PM.PNGS ---
Subjective Subjective Date of Service: 07/07/21 Interval history: Patient has mild incisional pain, but was able to ambulate and use the incentive spirometer. She is tolerating phase 1 bariatric diet Physical Exam Vital Signs: Vital Signs: Last Vital Signs Temp 97 F 07/06/21 08:22 Pulse 92 07/06/21 08:22 Resp 18 07/06/21 08:22 BP 129/73 07/06/21 08:22 Pulse Ox 98 07/06/21 08:22 BMI result Body Mass Index 41.8 GI: Inspection: Yes normal to inspection, Yes incision (clean, dry and intact) and Yes obesity Extrem: Right lower extremity: normal to inspection (no calf tenderness) Left lower extremity: normal to inspection (no calf tenderness) Objective Data Active Medications Albuterol Sulfate (Albuterol Sulfate (0.083%) 2.5 Mg/3 Ml Vial.Neb) 2.5 mg INHALE ONCE PRN PRN Reason: Shortness of Breath/Wheezing Lactated Ringer's (Lr) 1,000 mls @ 100 mls/hr IVCONT .Q10H PEYTON Last Admin: 07/06/21 08:56 Dose: 100 mls/hr Documented by: LORETTA Labs CBC & Chem 7: 07/07/21 05:59 07/07/21 05:59 Labs: Laboratory Results - last 24 hr 07/05/21 12:10 COVID-19 (FABIO) Negative COVID-19 Clin Com See Note Procedures Date of Service Date of Service: 07/07/21 Progress Note: A&P Assessment and plan (1) Morbid obesity: Status: Acute Assessment and Plan: s/p laparoscopic sleeve gastrectomy, lysis of adhesions repair of diaphragmatic hernia, and gastropexy Doing well Check am labs. If OK, will discharge home? (2) GERD (gastroesophageal reflux disease): Status: Acute (3) Asthma: Status: Acute (4) Depression: Status: Acute (5) Migraines: Status: Acute (6) Steatosis, liver: Status: Acute (7) Diaphragmatic hernia: Status: Acute Time Spent With Patient Time: Total time spent is greater than 50% in coordination of care (as documented) at patient's floor/unit and/or counseling patient: Quality Stroke Does the patient have a stroke diagnosis?: No VTE Prior VTE?: No VTE Risk Level:: Surgical - moderate VTE Device Contraindication: N/A - Device Ordered VTE Drug Contraindication: Treatment Not Indicated
--- NOTE | 2021-07-06 11:46 | P.BOP_ITS ---
Brief Operative Note Date of Service: 07/06/21 Pre-op diagnosis: Morbid obesity with comorbidities (see below) Post-op diagnosis: same Procedure: INITIAL PATIENT BMI ON PRESENTATION AT OUR OFFICE: 45.3 kg/m2 LAST BMI BEFORE SURGERY: 41.9 kg/m2 COMORBIDITIES: asthma, depression, migraines, GERD, liver steatosis, diaphragmatic hernia ?The patient presented to the Weight Management Program with significant obesity that was negatively impacting the patient's comorbidities as listed above.? The program is a phased program with a special focus on preoperative medical weight management to promote substantial weight loss and prepare the patients for the second phase of the program: bariatric surgery. The patient participated in an intensive weekly lifestyle ?intervention and exercise program during which the patient ?has lost between the initial office visit and the last preoperative visit 22.2lbs, or 9.37% of initial actual body weight. It was deemed appropriate for the patient to now have bariatric surgery. In light of the current Covid-19 pandemic and the well documented strong association of obesity and increased risk of worse outcomes if infected with Covid-19 (REFERENCES: https://pubmed.ncbi.nlm.nih.gov/46469164/ ,? https://pubmed.ncbi.nlm.nih.gov/71601062/ ), any delay in undergoing bariatric surgery may lead to the patient's worsening health condition and increased?risk of more severe Covid-19 disease if infected. In addition a recent?study from [facility] published in [facility] on 03/01/2021 ([id number]) found that, among patients with obesity, substantial weight loss achieved with surgery was associated with improved outcomes of COVID-19 infection. The findings suggest that obesity can be a modifiable risk factor for the severity of COVID-19 infection. In addition, the patient met the BMI-criteria for bariatric surgery based on the BMI on initial presentation. The patient should not be penalized for achieving such weight loss because ?it is not sustainable long-term without surgical intervention and it was achieved in preparation for bariatric surgery ?under my direction and based on my published research ([email or web address]).[email or web address] and? https://www.soard.org/article/[email or web address](28)28864-X/pdf ) ?that a 10% pre operative weight loss improves long-term weight loss after surgery and reduces perioperative complications.? Insurance carriers such as [facility] have endorsed my recommendations ?and have included in their policies criteria to include a 10% preoperative weight loss requirement. PROCEDURE: Esophago-gastroscopy, laparoscopic sleeve gastrectomy and laparoscopic gastropexy INDICATIONS: This is a 35 year-old female who was electively scheduled for laparoscopic, possibly open sleeve gastrectomy. The risks and complications of the procedure were discussed with the patient in advance, particularly the p ossibility of ; pulmonary embolism; staple line leak; bleeding; GERD; cardiac, pulmonary, or renal complications; as well as long-term problems such as insufficient weight loss, vitamin deficiency, strictures, or ulcers. The patient understood all the risks, and was in agreement to proceed with surgery. DESCRIPTION OF PROCEDURE: After informed consent was obtained from the patient, the patient was given preoperative antibiotics, and was transferred to the operating room. After successful induction of general anesthesia, pneumatic compression devices were placed on both lower extremities. An upper endoscopy was performed next. The oropharynx and esophagus appeared to be within normal limits. There was a diaphragmatic hernia present of moderate size consistent with the findings of the preoperative upper GI. The stomach was entered. Then after all fluid and air were suctioned and the stomach was fully decompressed, the scope was withdrawn and secured in the mid esophagus. The patient was then prepped and draped in the usual sterile manner, and abdominal access was established at the right upper quadrant with the Jeremías technique. A 12 mm blunt port was inserted, and the abdomen was insufflated with CO2 to a pressure of 15 mmHg. Under direct visualization, additional ports were placed, specifically two 5 mm Versi-step ports to the left upper quadrant, and a 5 mm Versi-Step port to the right upper quadrant. 1% lidocaine plain was used to infiltrate all port sites as well as all fascia defects. Following that, the patient was placed in a steep reverse Trendelenburg posit ion. An additional 5 mm port was placed to the right flank for the Mediflex retractor that was used to retract the left lobe of the liver. The gastro-esophageal fat pad was opened with the ultrasonic device (Thunderbeat, Olympus) and the anterior esophagus and hiatus were exposed. The angle of His was opened with the ultrasonic device the fundus of the stomach from any diaphragmatic and splenic attachments. I then opened the gastrocolic ligament between the transverse colon and the greater curvature of the stomach with the ultrasonic device to enter the lesser sac and facilitate the ligation of the short gastric vessels. I started at a mid-point along the greater curvature and using the Thunderbeat, all short gastric vessels were divided all the way to the angle of His until the left emmie was completely dissected at its entirety. I then divided the gastro-colic ligament distally to a distance of about 3-4 cm proximal to the pylorus. The stomach was then divided transversely with one Endo MARCIE-45 purple, one MARCIE- 45 orange load and four MARCIE-60 articulating orange loads using the AEON stapler and loads. Every effort was made that the gastric sleeve had a tubular shape and an even caliber throughout. Once the sleeve resection was completed, the staple line of the gastric sleeve was reinforced with Hemoclips. The resected stomach was retrieved without difficulty from the Jeremías port. A gastropexy was then performed in order to prevent postoperative GERD and partial gastric volvulus. Several interrupted 2.0 Surgidac sutures were placed between the sleeve's staple line and the previously divided greater omentum and gastro-colic ligament using the Endo-Stitch device. ?An upper endoscopy was performed. There was no narrowing at the GE junction. The scope was easily advanced all the way to the pylorus which was clearly visualized. There was no narrowing anywhere and the sleeve's caliber was even throughout. The sleeve's staple line was inspected and there was no evidence of ischemia, bleeding or dehiscence. At that point the gastroscope was withdrawn from the patient?s mouth while we were decompressing the bowel and the stomach from any remaining air. I looked into the lesser sac to see how the sleeve was situating and it was situating well. There was no bleeding from the staple line, spleen, or short gastric vessels. The Mediflex retractor was removed, and the undersurface of the liver was inspected and there was no bleeding. The patient was placed in supine position. I closed the fascial defect of the 12 mm port site with a figure of eight #1 P olysorb suture. Then 100 cc 0.25 % Marcaine plain with 10 mg of Dexamethasone were used to infiltrate the fascial closure as well as all skin incisions. At this point, the abdomen was deflated, all ports were removed under direct vision, and no bleeding was noted from any of the port sites. The skin incisions were irrigated with saline and were closed with 4-0 absorbable monofilament sutures. Steri-Strips and OpSites were used to cover all incisions. The patient was extubated and was transferred in stable condition to the recovery room for further care. I was present and performed all rodriguez parts of the procedure. Ms. Zavala was the pharmacist assistant. There were no residents to assist with this case. Abdifatah Elias MD, PhD, FACS Surgeon: Cristhian Elias MD Anesthesia: GETA, local and other (TAP block & 5.5ml Zynrelef) Was an Cloth Shrinking Supervisor used for this Procedure?: No Cloth Shrinking Supervisor: Mary Zavala Estimated blood loss (mL): 10 IV fluids (mL): 3,000 Urine output (mL): 0 (No Varma to record) Pathology: other (Stomach) Condition: stable Disposition: PACU
--- NOTE | 2021-07-06 14:37 | P.DS_ITS ---
DS: Providers Provider Date of Service: 07/07/21 Date of admission: 07/06/21 07:47 Primary care physician: Unknown Physician DS: Diagnosis Discharge Diagnosis (1) Morbid obesity: Status: Acute (2) GERD (gastroesophageal reflux disease): Status: Acute (3) Asthma: Status: Acute (4) Depression: Status: Acute (5) Migraines: Status: Acute (6) Steatosis, liver: Status: Acute (7) Diaphragmatic hernia: Status: Acute DS: Summary Hospital Course Hospital Course: ADMITTING DIAGNOSIS: morbid obesity, migraines, asthma DISCHARGE DIAGNOSIS: same, s/p laparoscopic sleeve gastrectomy PAST SURGICAL HISTORY: lap cholecystectomy, tubal ligation PROCEDURE: upper endoscopy, laparoscopic sleeve gastrectomy DISCHARGE SUMMARY: History of Present Illness: The patient is a 35 year-old woman with a BMI of 46.0 kg/m2 and associated co- morbidities as described above. The patient had extensive work-up,lost 22.2 lbs preoperatively and was electively scheduled for laparoscopic, possible open sleeve gastrectomy and gastropexy. Risks and complications of the surgery were discussed with the patient in advance, particularly the possibility of , pulmonary embolism, anastomotic leak, bleeding, bowel injury, GERD, cardiac, renal or pulmonary complications. The patient understood all the risks and was in agreement with the surgical plan. Hospital Course: The patient underwent an uneventful laparoscopic sleeve gastrectomy with gastropexy on the day of admission. Postoperatively, the patient was transferred to the surgical floor. The patient received IV Acetaminophen and IV dilaudid for pain control. Patient was started on bariatric phase 1 diet POD #0. On postoperative day one, the patient was feeling well without nausea, vomiting, fevers, or tachycardia. The patient had some mild incisional pain and the ab domen was soft. On the morning of postoperative day one, the patient was continued on 1 ounce of water or ice every half hour. During the day, the patient did fairly well, having some incisional pain, but able to ambulate adequately and to tolerate liquids well. Since the patient is doing well, we decided that the patient was ready to be discharged. The patient was given instructions to follow-up with me next week and to call my office for any fever over 101, persistent abdominal pain, nausea, vomiting, GERD, symptoms of DVT such as calf tenderness, or leg swelling, or pulmonary embolism such as chest pain or shortness of breath. The patient was also instructed to drink 40-60 ounces of liquids per day using the 1-ounce cups. The patient had been given prescriptions for Tylenol for pain, Zofran prn for nausea, and pantoprazole and carafate previously. The patient was encouraged to ambulate and use the incentive spirometer. The patient was allowed to shower, but no baths, and encouraged to stay active at home. All of these instructions were given to the patient personally. All questions were answered and the patient understood all instructions, the instructions were also given to the patient in print. Time Spent with Patient Time attestation: Total time spent providing and/or coordinating discharge services: Discharge coordination time: Less than 30 minutes Quality: Safe Use of Opioids Does Pt have an Active Cancer Diagnosis on the Problem List?: No Quality: Stroke Does the patient have a stroke diagnosis?: No Physical Exam Vital Signs: Vital Signs: Last Vital Signs Temp 97 F 07/06/21 08:22 Pulse 92 07/06/21 08:22 Resp 18 07/06/21 08:22 BP 129/73 07/06/21 08:22 Pulse Ox 98 07/06/21 08:22 BMI result Body Mass Index 41.8 DS: Data Data Completed and Pending Pending studies at discharge: Pending at discharge 07/06/21 14:05 Surgical [PTH] Routine Discharge Plan Discharge Anticipated Discharge Date/Time: 07/07/21 10:34 Patient Disposition: Home, Self-Care Discharge Diagnosis: s/p sleeve gastrectomy Referrals: Physician,Unknown J [Primary Care Provider] - 1 Week Discharge Medications: Continued ondansetron HCl 4 mg tablet 4 mg PO Q12H PRN (Reason: Nausea And Vomiting) 0RF acetaminophen [Tylenol Extra Strength] 500 mg tablet 500 mg PO Q6H PRN (Reason: Pain) 0RF pantoprazole 40 mg tablet,delayed release (DR/EC) 40 mg PO DAILY Qty: 30 2RF sucralfate 100 mg/mL suspension 10 ml PO BID Qty: 400 2RF Discontinued cholecalciferol (vitamin D3) 125 mcg (5,000 unit) capsule 125 mcg PO DAILY Qty: 30 3RF thiamine HCl (vitamin B1) 100 mg tablet 100 mg PO DAILY Qty: 30 1RF docusate sodium [Colace] 100 mg capsule 100 mg PO DAILY Qty: 30 2RF Discharge Orders: Discharge Order (Routine); Ordered 07/07/21 Ordered By: Cristhian Elias Diet: other Activity on Discharge: No heavy lifting Stand Alone Forms: Patient Portal Discharge page Care Plan Goals: weight loss Health Concerns: morbid obesity Plan of Treatment: No tub baths, sex or returning to work until discussed at first post op appointment. No exercise, alcohol, tobacco or illegal drug use. Continue to use incentive spirometer hourly while awake. Walk in home for 5- 10 minutes every 2 hours during the first week. Continue phase 1 diet today and start phase 2 diet tomorrow morning. Follow all instructions in the bariatric handbook and call with any questions. 1. Please call your doctor or come back to the emergency room should any new symptoms arise. 2. You will receive a courtesy call from [facility] 24-48 hours after discharge. 3. Activity: abstain from alcohol, practice limited stair climbing, no bending, no driving, no exercise, no illicit substances, no lifting, no sex, no tub bath, no work. 4. Diet: continue as discussed with Dr. Elias. 5. Dressing Change/Wound Care: Do not change or remove surgical dressings unless they are wet or soiled. 6. Call your doctor if: - Your temperature exceeds 101.5 F - You experience excessive pain or swelling - You have an unexpected reaction to medication - You have excessive bleeding - You experience continued vomiting/nausea - Your incision begins to separate - Your incision shows signs of infection such as increased redness, swelling, excessive pain, heat, or drainage (light blood or clear fluid is normal) 7. General instructions: No lifting greater than 5 lbs for the next 4 weeks[address] driving within 24 hours of taking narcotic pain medications. If you do not move your bowels in the next 2 days, please take milk of magnesia over the counter. Please follow the post op diet and do not advance your diet until you are seen in the office in about 2 weeks. Please walk around your home every hour or two to prevent blood clots from forming in your legs. You do not need to wake from sleeping to walk. Please sleep in a bed or couch to prevent kinking at the hips and knees. Please take your incentive spirometer (your lung asphalt engineer) home with you and use it for the next few days to prevent pneumonias. You may shower, no hot tubs, baths or swimming pools. Please call the office with any questions or concerns such as increasing abdominal pain, fever, chills, shortness of breath, chest pain, leg pain or swelling, or redness or drainage from your incisions. Do not hesitate to contact the office with any questions at . The patient's medical history has been reviewed and they are considered low risk for post op DVT and therefore DVT prophylaxis is not considered necessary. Travel after surgery was reviewed. The patient has not disclosed any travel plans during the first 30 days after surgery and they have been advised that within the first 30 days after surgery any bus, plane, train or car travel over 2 hours in duration is contraindicated due to the possibility of developing blood clots from immobility. Any travel, needs to include periods of ambulation of 10 minutes in duration every 2 hours. The patient was instructed to discuss any plans for travel during this period with their bariatric surgeon. Assessment: stable, post op sleeve gastrectomy
[2021-07-06] MEDS: Famotidine/PF 20 MG/2 ML VIAL IVPUSH ×2 (14:47→20:19)
[2021-07-06 14:51] LABS: Hematocrit 37.8 % (37.0-47.0); Hemoglobin 12.6 g/dl (12.0-16.0)
--- NOTE | 2021-07-06 15:05 | PHA.MEDREC ---
Pharmacy Consult ? Medication Reconciliation Pharmacy has completed the medication reconciliation.
[2021-07-06] MEDS: Metoclopramide HCl 10 MG/2 ML VIAL IVPUSH (15:12)
[2021-07-06 15:15] LABS: Anion Gap 16 (12-20); Blood Urea Nitrogen 5 mg/dL (9-16); Calcium 8.5 mg/dL (8.4-10.2); Carbon Dioxide 18 mmol/L (22-29); Chloride 106 mmol/L (96-108); Estimated Glomerular Filt Rate > 60; Glucose Random 102 mg/dL (60-115); Potassium 4.2 mmol/L (3.3-5.1); Sodium 136 mmol/L (135-145)
[2021-07-06] MEDS: ceFAZolin Sodium/Dextrose,Iso 2 GM/50 ML PIGGYBACK IV (16:44)
[2021-07-06] MEDS: 0.9 % Sodium Chloride Flush 3 ML SYRINGE IVFLUSH (20:19)
[2021-07-06] MEDS: ondansetron HCL 4 MG/2 ML VIAL IVPUSH (23:23)
[2021-07-07 03:15] VITALS: BP 125/69; PULSE 97; RESP 14; TEMP 36.8; O2SAT 94
[2021-07-07 06:33] LABS: MANUAL DIFF FLAG NO
[2021-07-07 06:38] LABS: Basophils Percent Auto 0.1 % (0-2); Hematocrit 38.4 % (37.0-47.0); Hemoglobin 12.7 g/dl (12.0-16.0); Imm Gran Abs Auto 0.09 X10*3/uL (0.00-0.03); Imm Gran Pct Auto 0.7 % (0.0-0.4); Lymphocytes Absolute Auto 0.9 X10*3/uL (1.2-4.9); Lymphocytes Percent Auto 6.8 % (20-40); Mean Corpuscular HGB Conc 33.1 g/dl (31.0-35.0); Mean Corpuscular Volume 90.8 fL (80.0-98.0); Mean Platelet Volume 12.2 fL (9.4-12.3); Monocytes Absolute Auto 0.4 X10*3/uL (0.1-1.2); Monocytes Percent Auto 2.8 % (2-11); Neutrophils Absolute Auto 11.8 x10*3/uL (2.0-8.3); Neutrophils Percent Auto 89.6 % (45-73); Platelet Count 175 X10*3/uL (160-400); Red Blood Count 4.23 X10*6/uL (4.20-5.50); Red Cell Distribution Width 13.2 % (11.0-16.0); White Blood Count 13.1 X10*3/uL (4.8-10.8)
[2021-07-07 06:58] LABS: Anion Gap 18 (12-20); Blood Urea Nitrogen 4 mg/dL (9-16); Calcium 8.9 mg/dL (8.4-10.2); Carbon Dioxide 14 mmol/L (22-29); Chloride 105 mmol/L (96-108); Creatinine Clr Calc Pharmacy 124.2; Estimated Glomerular Filt Rate > 60; Glucose Random 111 mg/dL (60-115); Potassium 4.5 mmol/L (3.3-5.1); Sodium 132 mmol/L (135-145)
[2021-07-07] MEDS: Famotidine/PF 20 MG/2 ML VIAL IVPUSH (07:18)
[2021-07-07] MEDS: ondansetron HCL 4 MG/2 ML VIAL IVPUSH (07:18)
[2021-07-07] MEDS: 0.9 % Sodium Chloride Flush 3 ML SYRINGE IVFLUSH (07:21)
[2021-07-07 07:31] VITALS: BP 119/67; PULSE 99; RESP 16; TEMP 36.9; O2SAT 99
--- NOTE | 2021-07-07 09:01 | MHC.CM.PN ---
EMR REVIEWED, PT ADMITTED S/P LAP SLEEVE GASTRECTOMY, PT REPORTS SHE LIVES W/, IS INDEPENDENT AT HOME, DENIES USE OD DME AND HOME SERVICES, PT DENIES BEING VACCINATED BY COVSOBIA, REPORTS SHE HAS A PCP AT [facility] ON [address] AND ONLY KNOW THE FIRST NAME DEYVI, THIS CM HAS REQUESTED NAME OF PCP BE LOOKED UP BY CM ADMIN ASSIT. D/C PLAN:HOME NO SERVICES W/OUTPT FOLLOW-UP W/SURGEON, PT'S FOR TRANSPORT.
--- NOTE | 2021-07-07 15:25 | HO.POSTANES ---
Post Anesthesia Evaluation Post Anesthesia Evaluation Vital Signs: Vital Signs Temp Pulse Resp BP Pulse Ox 07/07/21 07:31 98.5 F 99 16 119/67 99 Anesthesia: General Endotracheal-GETA Mental Status: Awake Pain Control: Satisfactory Nausea/Vomiting: None Hydration: Adequate Anesthesia-Related Issues: No Anes. Related Issues
== END 2021-07-07 09:48 | disposition home or self-care (01) | DRG 403 ==
LOC: HO.SSSA 14:36 → HO.S3 14:47
PROVIDERS: Physician Assistant; Physician Assistant Surgical; Admitting Provider Surgery; PCP Physician Assistant; Visit Provider Surgery
PROC: 0DB64Z3 Excision of Stomach, Percutaneous Endoscopic Approach, Vertical (ICD-10-PCS; CPT 43845; principal; 2021-07-06 10:10)
DX: E66.01 Morbid (severe) obesity due to excess calories (principal); K76.0 Fatty (change of) liver, not elsewhere classified; F32.A Depression, unspecified; K44.9 Diaphragmatic hernia without obstruction or gangrene; J45.909 Unspecified asthma, uncomplicated; Z20.822 Contact with and (suspected) exposure to COVID-19; Z68.41 Body mass index [BMI] 40.0-44.9, adult; G43.909 Migraine, unspecified, not intractable, without status migrainosus; Z88.5 Allergy status to narcotic agent; Z88.6 Allergy status to analgesic agent; Z79.899 Other long term (current) drug therapy
CPT/HCPCS: 36415; 80048; 80053; 80061; 83036; 83525; 84443; 85014; 85018; 85025; 85610; 85730; 86140; 86850; 86900; 86901; 87635; 88307; 88342; 99024; A4649; C9399; J0131; J0690; J1100; J1170; J2250; J2370; J2405; J2765; J3010

== ENCOUNTER → 2021-07-13 13:48 | Outpatient (BNVA) | payer OTHER, SELFPAY | PROVIDERS: PCP Physician Assistant; Referring Provider Physician Assistant; Visit Provider Physician Assistant Surgical | DX: Z98.84 Bariatric surgery status (principal) | CPT/HCPCS: 99212 ==

== ENCOUNTER → 2021-07-28 10:26 | Outpatient (BNVA) | payer OTHER, SELFPAY | PROVIDERS: PCP Physician Assistant; Referring Provider Surgery; Visit Provider Dietitian, Registered | DX: E66.9 Obesity, unspecified (principal); Z68.38 Body mass index [BMI] 38.0-38.9, adult; Z71.3 Dietary counseling and surveillance | CPT/HCPCS: 97803 ==

== ENCOUNTER → 2021-07-30 10:50 | Outpatient (BNVA) | payer OTHER, SELFPAY | PROVIDERS: PCP Physician Assistant; Referring Provider Physician Assistant; Visit Provider Physician Assistant Surgical | DX: K59.00 Constipation, unspecified (principal) | CPT/HCPCS: 99212 ==

== ENCOUNTER → 2021-08-04 09:13 | Outpatient (BNVA) | payer OTHER, SELFPAY | PROVIDERS: PCP Physician Assistant; Referring Provider Physician Assistant; Visit Provider Dietitian, Registered | DX: E66.9 Obesity, unspecified (principal) | CPT/HCPCS: 97803 ==

== ENCOUNTER → 2021-08-18 09:21 | Outpatient (BNVA) | payer OTHER, SELFPAY | PROVIDERS: PCP Physician Assistant; Referring Provider Physician Assistant; Visit Provider Dietitian, Registered | DX: E66.9 Obesity, unspecified (principal); Z68.37 Body mass index [BMI] 37.0-37.9, adult; Z98.84 Bariatric surgery status; Z71.3 Dietary counseling and surveillance | CPT/HCPCS: 97803 ==

== ENCOUNTER → 2021-08-25 08:56 | Outpatient (BNVA) | payer OTHER, SELFPAY | PROVIDERS: PCP Physician Assistant; Referring Provider Physician Assistant Surgical; Visit Provider Dietitian, Registered | DX: E66.9 Obesity, unspecified (principal) | CPT/HCPCS: 97803 ==

== ENCOUNTER → 2021-09-08 09:04 | Outpatient (BNVA) | payer OTHER, SELFPAY | PROVIDERS: PCP Physician Assistant; Referring Provider Physician Assistant Surgical; Visit Provider Dietitian, Registered | DX: E66.9 Obesity, unspecified (principal); Z68.36 Body mass index [BMI] 36.0-36.9, adult; Z98.84 Bariatric surgery status; Z71.3 Dietary counseling and surveillance | CPT/HCPCS: 97803 ==

== ENCOUNTER → 2021-10-07 08:58 | Outpatient (BNVA) | payer OTHER, SELFPAY | PROVIDERS: PCP Physician Assistant; Referring Provider Physician Assistant Surgical; Visit Provider Dietitian, Registered | DX: E66.9 Obesity, unspecified (principal); Z71.3 Dietary counseling and surveillance | CPT/HCPCS: 97803 ==

== ENCOUNTER → 2021-10-13 11:20 | Outpatient (BNVA) | payer OTHER, SELFPAY | PROVIDERS: PCP Physician Assistant; Referring Provider Physician Assistant; Visit Provider Nurse Practitioner Family | DX: K59.01 Slow transit constipation (principal); Z98.84 Bariatric surgery status | CPT/HCPCS: 99202 ==

== ENCOUNTER → 2021-11-17 10:55 | Outpatient (BNVA) | payer OTHER, SELFPAY | PROVIDERS: PCP Physician Assistant; Visit Provider Nurse Practitioner Family | DX: K59.04 Chronic idiopathic constipation (principal) | CPT/HCPCS: 99212 ==

== ENCOUNTER → 2021-11-24 09:51 | Outpatient (BNVA) | payer OTHER, SELFPAY | PROVIDERS: PCP Physician Assistant; Referring Provider Physician Assistant Surgical; Visit Provider Dietitian, Registered | DX: E66.9 Obesity, unspecified (principal); Z68.35 Body mass index [BMI] 35.0-35.9, adult | CPT/HCPCS: 97803 ==

== ENCOUNTER → 2021-12-06 09:03 | Outpatient (BNVA) | payer OTHER, SELFPAY | PROVIDERS: PCP Physician Assistant; Referring Provider Physician Assistant Surgical; Visit Provider Dietitian, Registered | DX: E66.9 Obesity, unspecified (principal) | CPT/HCPCS: 97803 ==

== ENCOUNTER → 2021-12-22 11:32 | Outpatient (BNVA) | payer OTHER, SELFPAY | PROVIDERS: PCP Physician Assistant; Visit Provider Nurse Practitioner Family | DX: K59.04 Chronic idiopathic constipation (principal); K21.9 Gastro-esophageal reflux disease without esophagitis | CPT/HCPCS: 99212 ==

== ENCOUNTER → 2022-01-07 08:56 | Outpatient (BNVA) | payer OTHER, SELFPAY | PROVIDERS: PCP Physician Assistant; Visit Provider Physician Assistant Surgical | DX: Z98.84 Bariatric surgery status (principal) | CPT/HCPCS: 99212 ==

== ENCOUNTER → 2022-02-03 16:20 | Outpatient (BNVA) | payer OTHER, SELFPAY | PROVIDERS: PCP Physician Assistant; Referring Provider Physician Assistant Surgical; Visit Provider Dietitian, Registered | DX: E66.01 Morbid (severe) obesity due to excess calories (principal); Z68.32 Body mass index [BMI] 32.0-32.9, adult; Z90.49 Acquired absence of other specified parts of digestive tract; Z71.3 Dietary counseling and surveillance | CPT/HCPCS: 97803 ==

== ENCOUNTER 2022-02-04 09:50 | Outpatient (REF) | payer OTHER, SELFPAY ==
[2022-02-04 10:10] LABS: MANUAL DIFF FLAG NO
[2022-02-04 10:28] LABS: Basophils Absolute Auto 0.1 X10*3/uL (0.0-0.2); Basophils Percent Auto 0.8 % (0-2); Eosinophils Percent Auto 0.7 % (0-4); Imm Gran Abs Auto 0.01 X10*3/uL (0.00-0.03); Imm Gran Pct Auto 0.2 % (0.0-0.4); Lymphocytes Percent Auto 32.7 % (20-40); Mean Corpuscular HGB Conc 33.3 g/dl (31.0-35.0); Mean Corpuscular Volume 90.1 fL (80.0-98.0); Monocytes Absolute Auto 0.4 X10*3/uL (0.1-1.2); Monocytes Percent Auto 6.7 % (2-11); Neutrophils Absolute Auto 3.6 x10*3/uL (2.0-8.3); Neutrophils Percent Auto 58.9 % (45-73); Platelet Count 239 X10*3/uL (160-400); Red Blood Count 4.66 X10*6/uL (4.20-5.50); White Blood Count 6.2 X10*3/uL (4.8-10.8)
[2022-02-04 10:37] LABS: Estimated Average Glucose 88 mg/dL; Hemoglobin A1c % 4.7 %
[2022-02-04 12:33] LABS: Folate 13.4 ng/mL (> or = 4.0); Vitamin B12 468 pg/mL (200-900)
[2022-02-04 12:48] LABS: Alanine Aminotransferase 10 U/L (0-31); Albumin Level 4.4 g/dL (3.5-5.0); Alkaline Phosphatase 79 U/L (39-117); Aspartate Amino Transferase 10 U/L (5-31); Bilirubin Total 0.8 mg/dL (0.0-1.0); Blood Urea Nitrogen 9 mg/dL (9-16); Calcium 9.8 mg/dL (8.4-10.2); Cholesterol 147 mg/dL; Estimated Glomerular Filt Rate > 60; Ferritin 42 ng/mL (10-122); Glucose Random 88 mg/dL (60-115); HDL Cholesterol 59 mg/dL; Insulin 5 uU/mL (2-29); Iron 103 mcg/dL (30-160); LDL Cholesterol Calculated 80 mg/dl; Percent Iron Saturation 36 % (15-50); TSH reflex Free T4 1.03 uIU/mL (0.32-4.0); Total Iron Binding Capacity 286 mcg/dL (228-428); Total Protein 7.3 g/dL (6.5-8.0); Triglycerides 41 mg/dL; Unsaturated Iron Binding 183 ug/dL; Vitamin D 25-OH Total 20.9 ng/mL (>30)
[2022-02-04 13:28] LABS: Anion Gap 18 (12-20); Carbon Dioxide 24 mmol/L (22-29); Chloride 106 mmol/L (96-108); Potassium 4.3 mmol/L (3.3-5.1); Sodium 144 mmol/L (135-145)
[2022-02-06 15:39] LABS: Calcium (PTHI) 9.8 mg/dL (8.6-10.2); PTHI 64 pg/mL (16-77)
[2022-02-09 15:59] LABS: Vitamin A 26 mcg/dL (38-98); Vitamin B1 <6 nmol/L (8-30)
[2022-02-09 17:58] LABS: Zinc 83 mcg/dL (60-130)
== END 2022-02-04 09:51 | disposition home or self-care (01) ==
LOC: HO.LAB 09:50
PROVIDERS: Visit Provider Physician Assistant Surgical
DX: Z98.84 Bariatric surgery status (principal)
CPT/HCPCS: 36415; 80053; 80061; 82306; 82607; 82728; 82746; 83036; 83525; 83540; 83970; 84425; 84443; 84590; 84630; 85025; 86140

== ENCOUNTER 2022-10-24 07:56 | Emergency (ER) | payer MEDICAID, SELFPAY ==
--- NOTE | ~2022-10-24 | CT_ITS ---
EXAMINATION: CT ABDOMEN AND PELVIS WITHOUT CONTRAST CLINICAL INFORMATION: Left-sided abdominal pain. Rule out kidney stone. COMPARISON: Previous CT of the abdomen and pelvis January 2020 TECHNIQUE: Multidetector volumetric imaging was performed from the superior aspect of the liver through the pubic symphysis. Sagittal and coronal reformatted images were obtained on the technologist's workstation. This CT examination was performed using dose optimization techniques as appropriate, variously including the following: *Automated exposure control *Adjustment of mA and/or kV according to patient size (this includes techniques or standardized protocols for targeted exams where dose is matched to indication/reason for exam; i.e. extremities or head) *Use of iterative reconstruction technique DLP: 732 mGy-cm FINDINGS: LUNG BASES: The visualized lung bases are unremarkable. LIVER, GALLBLADDER, AND BILIARY TREE: The liver is normal in size, shape, and attenuation. No focal hepatic lesion or biliary ductal dilatation is present. The gallbladder has been removed. PANCREAS: Unremarkable. SPLEEN: Unremarkable. ADRENAL GLANDS: Unremarkable. KIDNEYS AND URETERS: There are small left lower pole renal stones, largest measuring 2 x 3 mm. There is mild left hydronephrosis and left ureteral dilatation. This may be related to a recently passed stone. No right renal stone or hydronephrosis. BLADDER: There is a small 2 mm stone in the bladder. GASTROINTESTINAL TRACT: The small and large bowel are unremarkable. The appendix is unremarkable. Postsurgical changes from gastric sleeve. ABDOMINAL WALL: No significant hernia is appreciated. LYMPH NODES: Normal. VASCULAR: Unremarkable. PELVIC VISCERA: Unremarkable. OSSEOUS STRUCTURES: Unremarkable. CT/CT abdomen pelvis wo IV con IMPRESSION: Small left renal stones. Small 2 mm bladder stone. Mild left hydronephrosis and ureteral dilatation. This may be due to a recently passed stone . Fleischner guidelines were followed.
[2022-10-24 08:05] VITALS: BMI 31.1
--- NOTE | 2022-10-24 08:05 | ED_ITS ---
HPI - General Adult General Chief complaint: Abdominal Pain Stated complaint: LLQ PAIN FROM WORK PER EMS Time Seen by Provider: 10/24/22 08:01 Source: patient and EMS Mode of arrival: EMS Limitations: no limitations History of Present Illness HPI narrative: 37-year-old female history of GERD, obesity status post laparoscopic sleeve gastrectomy without hiatal hernia repair on 07/06/2021 , vitamin-A deficiency, migraines presenting to the emergency department for evaluation of severe left- sided abdominal pain throughout, she states her upper and lower quadrant it started suddenly this morning, no history of anything like this before. Did not think she is . Tells me she feels like she has to pee but does not think she can. No history of kidney stones. Denies fevers, chills, nausea, vomiting, headache, vision changes, dizziness, weakness, chest pain, shortness of breath Related Data Previous Rx's Medication Instructions Recorded vitamin A palmitate 3,000 mcg 10,000 unit PO DAILY #90 caps 02/14/22 (10,000 unit) capsule acetaminophen 325 mg capsule 650 mg PO QID PRN fever or pain 10/24/22 (Tylenol) #30 caps prednisone 20 mg tablet 20 mg PO DAILY 5 days #5 tabs 10/24/22 tamsulosin 0.4 mg capsule (Flomax) 0.4 mg PO DAILY 2 weeks #14 caps 10/24/22 Allergies Allergy/AdvReac Type Severity Reaction Status Date / Time aspirin [ASA] Allergy Unknown SWELLING Verified 10/24/22 08:23 morphine Allergy Hypotension Verified 10/24/22 08:23 Review of Systems Review of Systems: Constitutional : No Weight loss, No Fever, No Chills, No Fatigue, No Malaise ENT/Mouth : No sore throat, No Rhinorrhea Eyes: No Eye Pain, No Swelling, No Redness Cardiovascular : No Chest Pain, No SOB, No Dyspnea on Exertion, No Orthopnea, No Edema, No Palpitations Respiratory : No Cough, No Sputum, No Wheezing Gastrointestinal : No Nausea, No Vomiting, No Diarrhea, No Constipation, + abdominal Pain, No Hematochezia, No Melena Genitourinary : No Dysuria, No Urinary Frequency, No Hematuria, Musculoskeletal : No joint pain, No Myalgias, No Joint Swelling Skin : No Skin Lesions, No rash Neuro : No Weakness, No Numbness, No Dizziness, No Headache Psych : No Anxiety/Panic, No Depression All other systems reviewed and are negative Yes all other systems are reviewed and are negative [facility] Past Medical History Attestation statement: The following information was validated with the patient. Source: old records reviewed and nursing notes reviewed Medical History Asthma Constipation Depression Migraines Morbid obesity Steatosis, liver Surgical History S/P laparoscopic cholecystectomy S/P tubal ligation Family History Family History Father Lung cancer Mother No problems noted. Sister No problems noted. Sister No problems noted. Son No problems noted. Daughter No problems noted. Social History Social History Are you a primary home health caregiver to a significant other at home: No Do you presently have visiting nurse or other home services: No Alcohol intake: never Patient Tobacco Use Status: Never used Tobacco Advance Directives: No Advance Directives Information Provided: No service: No Current occupational status: unemployed Physical Exam ED Vital Signs: Vital Signs - 24 hr 10/24/22 08:21 Temperature 97.7 F Pulse Rate 69 Respiratory Rate 18 Blood Pressure 121/79 Pulse Oximetry 99 Oxygen Delivery Method Room Air BMI result Body Mass Index 31.1 vss Appearance: Alert.? Oriented X3.? No acute distress.? Looks uncomfortable Head: Normocephalic, atraumatic, no step-offs or deformities Eyes: Pupils equal, round and reactive to light.? ENT: Pharynx normal.? Neck: Normal inspection.? Neck supple.? CVS: Normal heart rate and rhythm.? Pulses normal.? Respiratory: No respiratory distress.? Breath sounds normal.? Abdomen: Soft and + ttp to entire l side of abdomen .? Skin: Skin warm and dry.? Normal skin color.? Normal skin turgor.? Extremities: No lower extremity edema.? No calf ttp. 5/5 strength to bilateral upper and lower extremities Neuro: Oriented X 3.? No motor deficit.? No sensory deficit. CN 2-12 intact Course Reevaluation(s) Reevaluation #1: CBC no acute findings. Chemistry unremarkable. HCG negative. Lipase normal. UA without infection however noted to have large amount of blood, concern for kidney stone, CT abdomen and pelvis with a small left renal stone and small 2 mm bladder stone, likely passed by patient. Mild left hydronephrosis with ureteral dilation. Likely secondary to recently passed stone. Giving fluids, Tylenol, patient feels better. I did speak to Urology but this case who recommends outpatient follow-up. Educated patient on diagnosis and treatment plan, answered all question, patient verbalizes understanding. At this time patient will be discharged home, advised to return with new or worsening symptoms. Educated on worrisome signs and symptoms and when to return. At this time I feel comfortable discharge home. Time: 13:38 Medications Administered Generic Name Dose Route Start Last Admin Trade Name Freq PRN Reason Stop Dose Admin Sodium Chloride 1,000 mls @ 999 mls/hr 10/24/22 12:45 10/24/22 13:10 Ns IV 10/24/22 13:45 999 mls/hr .Q1H1M PEYTON Administration Sodium Chloride 1,000 mls @ 999 mls/hr 10/24/22 12:45 10/24/22 13:10 Ns IV 10/24/22 13:45 999 mls/hr .Q1H1M PEYTON Administration Discontinued Medications Generic Name Dose Route Start Last Admin Trade Name Freq PRN Reason Stop Dose Admin Acetaminophen 975 mg 10/24/22 09:26 10/24/22 09:39 Acetaminophen 325 Mg Tablet PO 10/24/22 09:27 975 mg ONCE ONE Administration Medical Decision Making Lab Data 10/24/22 08:17 10/24/22 08:42 Labs: Lab Results 10/24/22 10/24/22 10/24/22 Range/Units 08:16 08:17 08:42 WBC 8.0 (4.8-10.8) X10*3/uL RBC 4.37 (4.20-5.50) X10*6/uL Hgb 13.5 (12.0-16.0) g/dl Hct 39.6 (37.0-47.0) % MCV 90.6 (80.0-98.0) fL MCH 30.9 (27.0-33.0) pg MCHC 34.1 (31.0-35.0) g/dl RDW 12.8 (11.0-16.0) % Plt Count 184 (160-400) X10*3/uL MPV 10.9 (9.4-12.3) fL Immature Gran % (Auto) 0.4 (0.0-0.4) % Neut % (Auto) 55.9 (45-73) % Lymph % (Auto) 36.6 (20-40) % [place] % (Auto) 5.2 (2-11) % Eos % (Auto) 1.4 (0-4) % Baso % (Auto) 0.5 (0-2) % Lymph # (Auto) 2.9 (1.2-4.9) X10*3/uL [place] # (Auto) 0.4 (0.1-1.2) X10*3/uL Eos # (Auto) 0.1 (0.0-0.4) X10*3/uL Baso # (Auto) 0.0 (0.0-0.2) X10*3/uL Abs Immat Gran (auto) 0.03 (0.00-0.03) X10*3/uL Absolute Neuts (auto) 4.5 (2.0-8.3) x10*3/uL Absolute Nucleated RBC 0.000 (0.0-0.012) X10*3/uL Nucleated RBC % (auto) 0.0 (0.0-0.2) /100WBC Sodium 142 (135-145) mmol/L Potassium 4.0 (3.3-5.1) mmol/L Chloride 112 H (96-108) mmol/L Carbon Dioxide 23 (22-29) mmol/L Anion Gap 11 L (12-20) BUN 8 L (9-16) mg/dL Creatinine 0.71 (0.5-1.4) mg/dL Estim Creat Clear Calc 104.3 Estimated GFR > 60 Random Glucose 105 (60-115) mg/dL Calcium 9.0 D (8.4-10.2) mg/dL Magnesium 2.0 (1.6-2.6) mg/dL Total Bilirubin 0.4 (0.0-1.0) mg/dL AST 12 (5-31) U/L ALT 11 (0-31) U/L Alkaline Phosphatase 63 (39-117) U/L Total Protein 6.7 (6.5-8.0) g/dL Albumin 3.8 (3.5-5.0) g/dL Lipase 18 (8-78) U/L Beta HCG, Quant < 2 mIU/mL Urine Color Dark Yellow Urine Appearance Cloudy Urine pH 5.5 (5.0-9.0) Ur Specific [place] >= 1.030 H (1.005-1.025) Urine Protein 100 (2+) H (Neg-Trace) mg/dL Urine Glucose (UA) Negative (Negative) mg/dL Urine Ketones Trace (Negative) mg/dL Urine Blood Large (3+) H (Negative) Urine Nitrite Negative (Negative) Ur Leukocyte Esterase Trace H (Negative) Urine RBC >20 H (0-2) /HPF Urine WBC 11-20 H (0-5) /HPF Ur Squamous Epith Cells 6-10 (0-2) /HPF Urine Bacteria None Seen (None Seen) Hyaline Casts 3-5 (0-2) /LPF Critical Care Time Critical Care Time Critical Care Time: No Discharge Plan Discharge Clinical Impression: Calculus of kidney, Hydronephrosis Patient Disposition: Home, Self-Care Instructions: Kidney Stones (ED), Hydronephrosis (ED) Additional Instructions: Take your medications as prescribed. If you were prescribed antibiotics today, it is important that you take your medication to their entirety, do not skip any doses, do not finish them early. Follow-up with your primary care provider this week. Return to the emergency department with new or worsening symptoms. Such as fevers, chills, chest pain, shortness of breath, nausea, vomiting, dizziness, headache, vision changes, lethargy In case of emergency call [address] of fluids [address]/CT abdomen pelvis wo IV con IMPRESSION: Small left renal stones. Small 2 mm bladder stone. Mild left hydronephrosis and ureteral dilatation. This may be due to a recently passed stone . Fleischner guidelines were followed. Prescriptions: New tamsulosin [Flomax] 0.4 mg capsule 0.4 mg PO DAILY 14 Days Qty: 14 0RF prednisone 20 mg tablet 20 mg PO DAILY 5 Days Qty: 5 0RF acetaminophen [Tylenol] 325 mg capsule 650 mg PO QID PRN (Reason: fever or pain) Qty: 30 0RF No Action vitamin A palmitate 10,000 unit capsule 10,000 unit PO DAILY Qty: 90 0RF Referrals: [facility] Urology Services [Provider Group] - 2 days Physician,None [Primary Care Provider] - 2 days Stand Alone Forms: Work/School Release
--- NOTE | 2022-10-24 08:15 | PC.NURSE ---
pt coming from work via ambulance. c/o sudden onset of LL abd pain. N & Vx1. A & O.
[2022-10-24 08:21] VITALS: BP 121/79; PULSE 69; RESP 18; TEMP 36.5; O2SAT 99
--- NOTE | 2022-10-24 08:25 | PC.NURSE ---
Pt reported that last BM was 2-3 days ago , but reported that daily BM is normal. Bowel sounds hypoactive upon auscultation.
[2022-10-24 08:29] LABS: MANUAL DIFF FLAG NO
[2022-10-24 08:32] LABS: Appearance Urine Cloudy; Color Urine Dark Yellow; Glucose Urine UA Negative (Negative); Leukocyte Esterase Urine Trace (Negative); Nitrite Urine Negative (Negative); PH 5.5 (5.0-9.0); Specific Gravity - Urine >= 1.030 (1.005-1.025); UMIC TRIGGER UACC YES; Urine Blood Large (3+) (Negative); Urine Ketones Trace mg/dL (Negative); Urine Protein 100 (2+) mg/dL (Neg-Trace)
[2022-10-24 08:33] LABS: Basophils Percent Auto 0.5 % (0-2); Eosinophils Absolute Auto 0.1 X10*3/uL (0.0-0.4); Eosinophils Percent Auto 1.4 % (0-4); Hematocrit 39.6 % (37.0-47.0); Hemoglobin 13.5 g/dl (12.0-16.0); Imm Gran Abs Auto 0.03 X10*3/uL (0.00-0.03); Imm Gran Pct Auto 0.4 % (0.0-0.4); Lymphocytes Absolute Auto 2.9 X10*3/uL (1.2-4.9); Lymphocytes Percent Auto 36.6 % (20-40); Mean Corpuscular HGB Conc 34.1 g/dl (31.0-35.0); Mean Corpuscular Hemoglobin 30.9 pg (27.0-33.0); Mean Corpuscular Volume 90.6 fL (80.0-98.0); Mean Platelet Volume 10.9 fL (9.4-12.3); Monocytes Absolute Auto 0.4 X10*3/uL (0.1-1.2); Monocytes Percent Auto 5.2 % (2-11); Neutrophils Absolute Auto 4.5 x10*3/uL (2.0-8.3); Neutrophils Percent Auto 55.9 % (45-73); Platelet Count 184 X10*3/uL (160-400); Red Blood Count 4.37 X10*6/uL (4.20-5.50); Red Cell Distribution Width 12.8 % (11.0-16.0)
[2022-10-24 08:41] LABS: Bacteria Urine None Seen (None Seen); RBC Urine >20 /HPF (0-2); UACC Culture Trigger YES
[2022-10-24 09:10] LABS: Alanine Aminotransferase 11 U/L (0-31); Albumin Level 3.8 g/dL (3.5-5.0); Alkaline Phosphatase 63 U/L (39-117); Anion Gap 11 (12-20); Aspartate Amino Transferase 12 U/L (5-31); Bilirubin Total 0.4 mg/dL (0.0-1.0); Blood Urea Nitrogen 8 mg/dL (9-16); Carbon Dioxide 23 mmol/L (22-29); Chloride 112 mmol/L (96-108); Creatinine Clr Calc Pharmacy 104.3; Estimated Glomerular Filt Rate > 60; Glucose Random 105 mg/dL (60-115); HCG Quantitative < 2 mIU/mL; Lipase 18 U/L (8-78); Sodium 142 mmol/L (135-145); Total Protein 6.7 g/dL (6.5-8.0)
[2022-10-24] MEDS: Acetaminophen 325 MG TABLET 975 MG PO (09:39)
--- NOTE | 2022-10-24 09:43 | PC.NURSE ---
PO tylenol given as ordered for c/o 09/12 LLQ pain.
[2022-10-24] MEDS: 0.9 % Sodium Chloride 1,000 ML 999 ML IV ×2 (13:10)
[2022-10-24 14:00] VITALS: BP 108/67; PULSE 60
--- NOTE | 2022-10-24 14:36 | PC.NURSE ---
pt cleared for discharge. discharge instructions reviewed with pt. pt reports 2/ abd pain tolerable. iv removed, vss.
== END 2022-10-24 14:36 | disposition home or self-care (01) ==
PROVIDERS: Physician Assistant; Emergency Provider Emergency Medicine
DX: N20.0 Calculus of kidney (principal); R10.32 Left lower quadrant pain; N13.30 Unspecified hydronephrosis; Z98.84 Bariatric surgery status; Z79.899 Other long term (current) drug therapy
CPT/HCPCS: 36415; 74176; 80053; 81001; 83690; 83735; 84702; 85025; 87086; 96360; 99284

== ENCOUNTER 2023-07-24 10:44 | Inpatient (IN) | payer MEDICAID, SELFPAY ==
[2023-07-24] VITALS (7 sets, daily range): BP systolic 104–120; BP diastolic 59–76; PULSE 86–97; RESP 16–18; TEMP 36.7–37.2; O2SAT 96–99; BMI 34.4
--- NOTE | ~2023-07-24 | US_ITS ---
EXAMINATION: US PELVIS, LIMITED/FOLLOW UP CLINICAL INFORMATION: Labial pain and swelling COMPARISON: None available. TECHNIQUE: High-frequency linear ultrasound transducer was used to examine the labia. FINDINGS: There is a thick-walled cystic mass present measuring 2.5 x 1.4 x 1.4 cm in the mid labia. No other masses are seen. The visualized right labia appears normal. US/US pelvic limited IMPRESSION: Thick-walled cystic mass in the left labia. Differential diagnosis would include most likely a complex Bartholin's gland cyst or abscess - much less likely a cystic neoplasm.
--- NOTE | 2023-07-24 11:02 | ED_ITS ---
HPI - Female Genitourinary General Chief complaint: Urogenital-Female Stated complaint: Abscess vaginal area Time Seen by Provider: 07/24/23 17:27 Source: patient Mode of arrival: ambulatory Limitations: no limitations History of Present Illness ED Provider: Walker ALVARADO HPI Narrative: 37-year-old female presents with severe pain to her periarea, patient has history of Bartholin cyst and she believes she might have 1 forming/developing, it started Monday and has been becoming larger and more painful. No associated fevers or chills. No numbness no tingling. No nausea, vomiting, cp, sob, headache, vision changes, dizziness. Related Data Previous Rx's ?Medication ?Instructions ?Recorded vitamin A palmitate 3,000 mcg 10,000 unit PO DAILY #90 caps 02/14/22 (10,000 unit) capsule acetaminophen 325 mg capsule 650 mg (2 x 325 mg) PO QID PRN 10/24/22 (Tylenol) fever or pain #30 caps prednisone 20 mg tablet 20 mg PO DAILY 5 days #5 tabs 10/24/22 tamsulosin 0.4 mg capsule (Flomax) 0.4 mg PO DAILY 2 weeks #14 caps 10/24/22 Allergies Allergy/AdvReac Type Severity Reaction Status Date / Time aspirin [ASA] Allergy Unknown SWELLING Verified 07/24/23 11:00 morphine Allergy Hypotension Verified 07/24/23 11:00 Review of Systems 2 Review of Systems: Yes all other systems are reviewed and are negative PMFSH Past Medical History Attestation statement: The following information was validated with the patient. Source: old records reviewed and nursing notes reviewed Medical History Steatosis, liver Depression Migraines Asthma Constipation Morbid obesity Surgical History S/P tubal ligation S/P laparoscopic cholecystectomy Family History Family History Father Lung cancer Mother No problems noted. Sister No problems noted. Sister No problems noted. Son No problems noted. Daughter No problems noted. Social History Social History Are you a primary healthcare administration internship to a significant other at home: No Do you presently have visiting nurse or other home services: No Alcohol intake: never Patient Tobacco Use Status: Never used Tobacco service: No Current occupational status: unemployed Physical Exam 2 Vital Signs: Vital Signs: Last Vital Signs Temp 98.9 F 07/24/23 16:17 Pulse 88 07/24/23 16:17 Resp 16 07/24/23 16:17 BP 104/59 L 07/24/23 16:17 Pulse Ox 98 07/24/23 16:17 O2 Del Method Room Air 07/24/23 16:17 BMI result Body Mass Index 34.4 vss Appearance: Alert.? Oriented X3.? No acute distress.? Head: Normocephalic, atraumatic, no step-offs or deformities Eyes: Pupils equal, round and reactive to light.? CVS: Normal heart rate and rhythm.? Pulses normal.? Respiratory: No respiratory distress.? Breath sounds normal.? Abdomen: Soft and nontender.? Skin: Skin warm and dry.? Normal skin color.? Normal skin turgor.? Sensative exam: R labia majora, minora and clitoris enlarged and very ttp w/ errythema and warmth overlying. No appreciated fluctuance. ( took an image via secure tiger text with patient consent and consulted OBGYN image below again patient consent obtained) Extremities: No lower extremity edema.? No calf ttp. 5/5 strength to bilateral upper and lower extremities Neuro: Oriented X 3.? No motor deficit.? No sensory deficit. CN 2-12 intact Course Course Course Narrative: This is an RME: Additional HPI, ROS, PE not included below will be deferred to primary provider. RME note and assessment performed by: Caroline Mei PA-C This a 37 year female, with a history of Bartholin cyst, who presents emergency department with complaints of questionable abscess inside her vagina for the last several days. She states that she has a history of similar symptoms, was seen in 2021 for this. No fevers or chills. Unable to visualize region in triage secondary to limited privacy. Further ER evaluation needed by primary provider. Plan: Further ER evaluation Reevaluation(s) Reevaluation #1: CBC with leukocytosis. No left shift. Chemistry still pending. Lactic acid 1.1. Patient in a lot of pain fentanyl given with good relief of pain. Patient is unable to walk secondary to pain. I did have a lengthy discussion with OBGYN who a shared images with on this case recommend IV antibiotics Zosyn and vanco. Plus or minus ultrasound-guided drainage if abscess is seen on imaging. If abscess is needed IR can be consulted for drainage. Plan at this time is to admit patient to the hospitalist team for pain control, cellulitis plus or minus abscess. Time: 19:49 Medications Administered Discontinued Medications Generic Name Dose Route Start Last Admin Trade Name Michelle PRN Reason Stop Dose Admin Acetaminophen 975 mg 07/24/23 17:58 07/24/23 19:13 Acetaminophen 325 Mg Tablet PO 07/24/23 17:59 975 mg ONCE ONE Administration Fentanyl 50 mcg 07/24/23 18:06 07/24/23 19:12 Fentanyl Citrate/Pf 100 Mcg/2 Ml Vial IVPUSH 07/24/23 18:07 50 mcg ONCE ONE Administration Protocol Medical Decision Making Medical Decision Making [facility] Narrative: 1832 37-year-old female presents with pain to periarea since Monday believes she may have a Bartholin cyst. Physical exam very large right labia majora, minora and labia. Erythema overlying. Images and chart with patient consent. History and physical exam concerning for abscess versus cellulitis vs Bartholin cyst. Unlikely Keaton gangrene. Other differentials include yeast infection. Plan at this time labs, imaging Differential Diagnosis Differential Diagnoses: The differential diagnosis associated with the presentation includes History and physical exam concerning for abscess versus cellulitis Bartholin cyst. . Unlikely Keaton gangrene. Other differentials include yeast infection. Admission/Observation Consideration of admission/observation: Escalation of care including admission/observation considered likely Lab Data [facility] Lab Attestation statement: I reviewed the patient's lab results. 07/24/23 18:27 07/24/23 18:27 Labs: Lab Results 07/24/23 07/24/23 Range/Units 18:27 19:09 WBC 12.8 H (4.8-10.8) X10*3/uL RBC 4.52 (4.20-5.50) X10*6/uL Hgb 14.1 (12.0-16.0) g/dl Hct 40.3 (37.0-47.0) % MCV 89.2 (80.0-98.0) fL MCH 31.2 (27.0-33.0) pg MCHC 35.0 (31.0-35.0) g/dl RDW 13.0 (11.0-16.0) % Plt Count 230 (160-400) X10*3/uL MPV 11.9 (9.4-12.3) fL Immature Gran % (Auto) 0.4 (0.0-0.4) % Neut % (Auto) 74.3 H (45-73) % Lymph % (Auto) 16.8 L (20-40) % [place] % (Auto) 7.3 (2-11) % Eos % (Auto) 0.9 (0-4) % Baso % (Auto) 0.3 (0-2) % Lymph # (Auto) 2.2 (1.2-4.9) X10*3/uL [place] # (Auto) 0.9 (0.1-1.2) X10*3/uL Eos # (Auto) 0.1 (0.0-0.4) X10*3/uL Baso # (Auto) 0.0 (0.0-0.2) X10*3/uL Abs Immat Gran (auto) 0.05 H (0.00-0.03) X10*3/uL Absolute Neuts (auto) 9.5 H (2.0-8.3) x10*3/uL Absolute Nucleated RBC 0.000 (0.0-0.012) X10*3/uL Nucleated RBC % (auto) 0.0 (0.0-0.2) /100WBC Lactic Acid 1.1 (0.5-2.0) mmol/L Independent Interpretation I performed an independent interpretation of an: Ultrasound Radiology Impression Discussion of test interpretation with radiology: I have reviewed the radiologist's reading. External Record Review External record reviewed: Office record, Outpatient record and Prior outpatient labs Prescription Management I considered prescription management with: Antibiotic Chronic Conditions Patient?s care impacted by: Other (obesity, Bartholin cyst ) Critical Care Time Critical Care Time Critical Care Time: Yes Total Critical Care Time: 60 Attestation: I attest to this time spent taking care of the patient, obtaining history, physical, reviewing labs, imaging, speaking to my attending, specialist or hospitalist. Discharge Plan Discharge Clinical Impression: Cellulitis of labia Patient Disposition: Admitted As Inpatient Prescriptions: No Action vitamin A palmitate 10,000 unit capsule 10,000 unit PO DAILY Qty: 90 0RF tamsulosin [Flomax] 0.4 mg capsule 0.4 mg PO DAILY 14 Days Qty: 14 0RF prednisone 20 mg tablet 20 mg PO DAILY 5 Days Qty: 5 0RF acetaminophen [Tylenol] 325 mg capsule 650 mg PO QID PRN (Reason: fever or pain) Qty: 30 0RF Print Language: Thai
[2023-07-24 18:30] LABS: MANUAL DIFF FLAG NO
[2023-07-24 18:36] LABS: Basophils Percent Auto 0.3 % (0-2); Eosinophils Absolute Auto 0.1 X10*3/uL (0.0-0.4); Eosinophils Percent Auto 0.9 % (0-4); Hematocrit 40.3 % (37.0-47.0); Hemoglobin 14.1 g/dl (12.0-16.0); Imm Gran Abs Auto 0.05 X10*3/uL (0.00-0.03); Imm Gran Pct Auto 0.4 % (0.0-0.4); Lymphocytes Absolute Auto 2.2 X10*3/uL (1.2-4.9); Lymphocytes Percent Auto 16.8 % (20-40); Mean Corpuscular Hemoglobin 31.2 pg (27.0-33.0); Mean Corpuscular Volume 89.2 fL (80.0-98.0); Mean Platelet Volume 11.9 fL (9.4-12.3); Monocytes Absolute Auto 0.9 X10*3/uL (0.1-1.2); Monocytes Percent Auto 7.3 % (2-11); Neutrophils Absolute Auto 9.5 x10*3/uL (2.0-8.3); Neutrophils Percent Auto 74.3 % (45-73); Platelet Count 230 X10*3/uL (160-400); Red Blood Count 4.52 X10*6/uL (4.20-5.50); White Blood Count 12.8 X10*3/uL (4.8-10.8)
[2023-07-24] MEDS: fentaNYL citrate/PF 100 MCG/2 ML VIAL 50 MCG IVPUSH (19:12)
[2023-07-24] MEDS: Acetaminophen 325 MG TABLET 975 MG PO (19:13)
[2023-07-24] MEDS: Piperacillin Sodium/Tazobactam 3.375 GM in 0.9 % Sodium Chloride 50 ML IV (19:43)
[2023-07-24 19:45] LABS: Lactic Acid 1.1 mmol/L (0.5-2.0)
[2023-07-24 19:50] LABS: Alanine Aminotransferase 12 U/L (0-31); Alkaline Phosphatase 75 U/L (39-117); Anion Gap 13 (12-20); Aspartate Amino Transferase 12 U/L (5-31); Bilirubin Total 0.6 mg/dL (0.0-1.0); Blood Urea Nitrogen 7 mg/dL (9-16); Calcium 9.3 mg/dL (8.4-10.2); Carbon Dioxide 25 mmol/L (22-29); Chloride 107 mmol/L (96-108); Creatinine Clr Calc Pharmacy 124.1; Estimated Glomerular Filt Rate > 60; Glucose Random 105 mg/dL (60-115); Magnesium 1.9 mg/dL (1.6-2.6); Potassium 3.5 mmol/L (3.3-5.1); Sodium 141 mmol/L (135-145); Total Protein 7.3 g/dL (6.5-8.0)
[2023-07-24] MEDS: Lidocaine HCl 1 % 20 ML VIAL SUBCUT (19:52)
--- NOTE | 2023-07-24 20:05 | P.HPHOSP_ITS ---
History of Present Illness Date of Service: 07/24/23 Attending physician on admission: Magalis Baez Chief Complaint: vulva pain and swelling 37-year-old female with history of mild intermittent asthma, GERD, obesity presents to the ED for evaluation of labial pain and swelling that has been ongoing for 4 days. Reports about 4 days ago had a tiny pustule on the right labia that has resulted in significant swelling and pain that is limiting her ability to walk secondary to the pain intensity. She denies any vaginal discharge or purulent drainage from the area. She has been using warm compresses with limited relief. States she has had recurrent Bartholin's cyst/abscesses that have required draining in the past. She denies any fevers or chills. No nausea or vomiting. She did recently shaved her perineum. On arrival, patient with mild tachycardia into the 90s. She is afebrile with otherwise stable vital signs. There is a leukocytosis of 12.8. Renal function and electrolyte levels normal. Lactic acid 1.1. Pelvis ultrasound pending but wet read does show probable 2 cm x 1 cm abscess, possibly of right Bartholin's gland. In the ED, has been given IV Zosyn, vancomycin, fentanyl. Bedside I and D was attempted without any drainage obtained. Case was discussed with presser and blocker knitted goods recommending admission for IV antibiotics and drainage given presence of abscess. Review of Systems 2 Review of Systems: General: No fevers, malaise, unintentional weight loss HEENT: No blurred vision, diplopia. No sore throat, nasal congestion, rhinorrhea, sinus pain, ear pain Cardiovascular: No chest pain, palpitations, or leg edema Respiratory: No shortness of breath, wheezing, cough GI: No abdominal pain, nausea, vomiting, diarrhea, constipation, melena, hematochezia : No dysuria, hematuria, increased urinary frequency, decreased urinary output [employer] CR[employer]: See hpi MSK: No myalgia, back pain Neuro: No headaches, weakness, paresthesias Skin: No rashes or lesions [facility] Medical History Steatosis, liver Depression Migraines Asthma Constipation Morbid obesity Family History Father Lung cancer Mother No problems noted. Sister No problems noted. Sister No problems noted. Son No problems noted. Daughter No problems noted. Surgical History S/P tubal ligation S/P laparoscopic cholecystectomy Social History Are you a primary child care aide to a significant other at home: No Do you presently have visiting nurse or other home services: No Alcohol intake: never Patient Tobacco Use Status: Never used Tobacco Smoked in Last 30 Days: No Use of substances other than those prescribed or required for medical reasons: No Advance Directives: No Advance Directives Information Provided: No Do you have a plan to hurt others: No Plan service: No Current occupational status: unemployed Meds Allergies Allergy/AdvReac Type Severity Reaction Status Date / Time aspirin [ASA] Allergy Unknown SWELLING Verified 07/24/23 11:00 morphine Allergy Hypotension Verified 07/24/23 11:00 Active Medications: Current Medications Acetaminophen (Acetaminophen 325 Mg Tablet) 650 mg PO Q6H PRN PRN Reason: Pain, Mild (Pain Scale 1-3) Hydromorphone HCl (Hydromorphone Hcl 1 Mg/Ml Syringe) 0.25 mg IVPUSH Q4H PRN; Protocol PRN Reason: Pain, Severe (Pain Scale 7-10) Vancomycin HCl (Vancomycin/Ns) 2,000 mg in 500 mls @ 250 mls/hr IV ONCE ONE Stop: 07/24/23 20:17 Piperacillin Sod/Tazobactam (Sod 3.375 gm/ Sodium Chloride) 50 mls @ 100 mls/hr IV Q6H [place] Magnesium Hydroxide (Milk Of Magnesia 30 Ml Oral.Susp) 30 ml PO DAILY PRN PRN Reason: Constipation Ondansetron HCl (Ondansetron Hcl 4 Mg/2 Ml Vial) 4 mg IVPUSH Q8H PRN PRN Reason: Nausea and Vomiting Oxycodone HCl (Oxycodone Hcl Immed Release 5 Mg Tablet) 5 mg PO Q6H PRN PRN Reason: Pain, Moderate(Pain Scale 4-6) Pharmacy Consult (Consult Rx Vancomycin Dosing) 1 each MISCELLANE DAILY PRN PRN Reason: Consult order Sodium Chloride (0.9 % Sodium Chloride Flush 3 Ml Syringe) 3 ml IVFLUSH QSHIFT [place] Physical Exam 2 Vital Signs and Narrative: Vital Signs: Last Vital Signs Temp 98.4 F 07/24/23 19:59 Pulse 97 07/24/23 19:59 Resp 18 07/24/23 19:59 BP 106/67 07/24/23 19:59 Pulse Ox 98 07/24/23 19:59 O2 Del Method Room Air 07/24/23 19:59 BMI result Body Mass Index 34.4 Constitutional - Awake and Alert, No apparent distress Eyes - PERRLA, EOMI Cardiovascular - S1S2, RRR, No edema Respiratory - Normal lung expansion, Normal respiratory effort, No respiratory distress, CTA bilaterally Gastrointestinal - NT / ND; +BS; No rebound or guarding [employer]USH[employer] - significant swelling right labia majora/minora and clitoris. No fluctuance or induration. See photo below- pt consented to photo. Seen and examined at bedside with present Extremities - no calf tenderness bilaterally, no swelling Skin - Warm/Dry Neurological - Alert & oriented x3 Psychological - Appropriate affect Results Labs 07/24/23 18:27 07/24/23 19:10 Labs: Laboratory Results - last 24 hr 07/24/23 07/24/23 07/24/23 18:27 19:09 19:10 MCV 89.2 MCH 31.2 MCHC 35.0 RDW 13.0 Plt Count 230 MPV 11.9 Immature Gran % (Auto) 0.4 Neut % (Auto) 74.3 H Lymph % (Auto) 16.8 L [place] % (Auto) 7.3 Eos % (Auto) 0.9 Baso % (Auto) 0.3 Lymph # (Auto) 2.2 [place] # (Auto) 0.9 Eos # (Auto) 0.1 Baso # (Auto) 0.0 Abs Immat Gran (auto) 0.05 H Absolute Neuts (auto) 9.5 H Absolute Nucleated RBC 0.000 Nucleated RBC % (auto) 0.0 Anion Gap 13 Estim Creat Clear Calc 124.1 Estimated GFR > 60 Random Glucose 105 Lactic Acid 1.1 Calcium 9.3 Magnesium 1.9 Total Bilirubin 0.6 AST 12 ALT 12 Alkaline Phosphatase 75 Total Protein 7.3 Albumin 4.0 Assessment and Plan (1) Abscess of labia: Status: Acute Plan 37-year-old female with history of mild intermittent asthma, GERD, obesity admitted for further management of extensive cellulitis with abscess of the labia with sepsis #Cellulitis and abscess labia with sepsis -leukocytosis 12.8, mild tachycardia -pelvic ultrasound results pending but wet read shows probable 2 cm x 1 cm Bartholin's abscess -IV zosyn and vancomycin per presser and blocker knitted goods (initiated 07/23) -pain management using pain scale -presser and blocker knitted goods input appreciated -IR consult. Has required ketamine in past for Bartholin's abscess drainage -follow CBC, cultures # mild intermittent asthma -no acute exacerbation, albuterol p.r.n. # obesity -weight loss efforts encouraged DVT prophylaxis-compression, early ambulation Full code Patient requires inpatient stay at least 2 midnights for extensive cellulitis and abscess of the labia with sepsis requiring IV antibiotics and expert consultation Quality Stroke Does the patient have a stroke diagnosis?: No VTE Prior VTE?: No VTE Risk Level:: Medical - moderate - high VTE Device Contraindication: N/A - Device Ordered VTE Drug Contraindication: Treatment Not Indicated
--- NOTE | 2023-07-24 20:11 | PM.GYNCN ---
[employer] - CN: HPI Data of Consult Consult date: 07/24/23 Requesting Physician: AKANKSHA Syed Primary Care Provider: Unknown Physician Consult Narrative Narrative: I was consulted on Luci Pearce is a 37 year old female who presented to the emergency room with pain to right vulvar area . The pain started 4 days ago and has been getting worse since then. No associated fevers or chills. No no vaginal discharge, no nausea or vomiting or any other concerns. The patient recently shaved her perineum AKANKSHA Snyder in the emergency room reported no palpable abscess, attempted I&D and aspiration by an 18 gauge needle resulted in no fluid aspiration cc:: CC: AKANKSHA Syed OB PMF Past Medical History Medical History Steatosis, liver Depression Migraines Asthma Constipation Morbid obesity Family History Family History Father Lung cancer Mother No problems noted. Sister No problems noted. Sister No problems noted. Son No problems noted. Daughter No problems noted. Surgical History Surgical History S/P tubal ligation S/P laparoscopic cholecystectomy Social History Social History Household Members: Family Housing: Apartment Are you a primary healthcare market consultant to a significant other at home: No Do you presently have visiting nurse or other home services: No Alcohol intake: never Patient Tobacco Use Status: Never used Tobacco service: No Current occupational status: unemployed Meds Allergies Allergy/AdvReac Type Severity Reaction Status Date / Time aspirin [ASA] Allergy Unknown SWELLING Verified 07/24/23 11:00 morphine Allergy Hypotension Verified 07/24/23 11:00 Active Medications: Current Medications Acetaminophen (Acetaminophen 325 Mg Tablet) 650 mg PO Q6H PRN PRN Reason: Pain, Mild (Pain Scale 1-3) Hydromorphone HCl (Hydromorphone Hcl 1 Mg/Ml Syringe) 0.25 mg IVPUSH Q4H PRN; Protocol PRN Reason: Pain, Severe (Pain Scale 7-10) Vancomycin HCl (Vancomycin/Ns) 2,000 mg in 500 mls @ 250 mls/hr IV ONCE ONE Stop: 07/24/23 20:17 Piperacillin Sod/Tazobactam (Sod 3.375 gm/ Sodium Chloride) 50 mls @ 100 mls/hr IV Q6H [place] Magnesium Hydroxide (Milk Of Magnesia 30 Ml Oral.Susp) 30 ml PO DAILY PRN PRN Reason: Constipation Ondansetron HCl (Ondansetron Hcl 4 Mg/2 Ml Vial) 4 mg IVPUSH Q8H PRN PRN Reason: Nausea and Vomiting Oxycodone HCl (Oxycodone Hcl Immed Release 5 Mg Tablet) 5 mg PO Q6H PRN PRN Reason: Pain, Moderate(Pain Scale 4-6) Pharmacy Consult (Consult Rx Vancomycin Dosing) 1 each MISCELLANE DAILY PRN PRN Reason: Consult order Sodium Chloride (0.9 % Sodium Chloride Flush 3 Ml Syringe) 3 ml IVFLUSH QSHIFT [facility] Home Medications ?Medication ?Instructions ?Recorded ?Confirmed ?Last Taken ?Type No Known Home Meds 07/24/23 07/24/23 Unknown History [employer] Physical Exam Vitals Vital signs: Temp Pulse Resp BP Pulse Ox O2 Del Method 98.4 F 97 18 106/67 98 Room Air 07/24/23 19:59 07/24/23 19:59 07/24/23 19:59 07/24/23 19:59 07/24/23 19:59 07/24/23 19:59 BMI result Body Mass Index 34.4 Additional Comments: Bilateral normal Bartholin's gland. Right labia majora erythematous and swollen with no evidence of abscess, right labia minora with tender mass, fluctuance, erythema, edema and induration consistent with an abscess of around 2.5 cm , Left labia majora and minora within normal. The patient could not tolerate a speculum exam to inspect the vagina, cervix , uterus and adnexa [employer] - Results Labs 07/25/23 05:18 07/25/23 05:18 Labs: Short CBC 07/24/23 Range/Units 18:27 WBC 12.8 H (4.8-10.8) X10*3/uL Hgb 14.1 (12.0-16.0) g/dl Hct 40.3 (37.0-47.0) % Plt Count 230 (160-400) X10*3/uL BMP 07/24/23 19:10 Sodium 141 Potassium 3.5 Chloride 107 Carbon Dioxide 25 BUN 7 L Creatinine 0.58 Calcium 9.3 Liver Function 07/24/23 Range/Units 19:10 Total Bilirubin 0.6 (0.0-1.0) mg/dL AST 12 (5-31) U/L ALT 12 (0-31) U/L Alkaline Phosphatase 75 (39-117) U/L Albumin 4.0 (3.5-5.0) g/dL Imaging US - abdomen: Radiologist's impression: ITS Impressions Pelvis Ultrasound 07/24/23 19:38 IMPRESSION: Thick-walled cystic mass in the left labia. Differential diagnosis would include most likely a complex Bartholin's gland cyst or abscess - much less likely a cystic neoplasm. Assessment and Plan (1) Cellulitis of labia: Status: Acute Continue IV antibiotics vanco/Zosyn once swelling and erythema improves, recommended to switch to p.o. antibiotics depending on the sensitivity of the abscess culture Pain management, VTE prophylaxis, check blood culture Ambulate, regular diet (2) Abscess of labia: Status: Acute I&D of the right labia minora done, see procedure note. Culture sent [employer] Procedures Abscess I/D Site: Labium Minus Side (if applicable): right Anesthetic: lidocaine 1% Comments: Before the procedure was started d/w patient the procedure, alternatives (do nothing, medical rx), & all the risks associated with the procedure ( bleeding , infection, vulvar scarring, painful intercourse, injury to vessels, possible need for transfusion with all its risks) then patient signed the consent. Preoperative diagnosis: Right labia minora Abscess. Operation: Right labia minora I & D Post-operative diagnosis: Same Anesthesia: Lidocaine 1% 5 cc used Procedure: The skin was prepped with Betadine, palpation was used for guidance, 11-blade was used to incise the skin contiguous with the abscess cavity. This yielded 5 cc of purulent fluid, anaerobic smelling & substantially decompressed the swelling, a clean dressing was used at the end. The patient tolerated the procedure well. Addendum the procedure, the patient was in stable condition. This note was generated with a voice recognition program. Some errors may have been overlooked during the review of this note. Sometimes these errors may affect the content or meaning of a given sentence.
[2023-07-24] MEDS: vancomycin/NS 2,000 MG/500 ML PLAST..BAG 250 MG IV (20:30)
--- NOTE | 2023-07-24 22:09 | PHA.MEDREC ---
Pharmacy Consult ? Medication Reconciliation Pharmacy has completed the medication reconciliation. Patient reports no home meds
[2023-07-24] MEDS: diphenhydrAMINE HCL 50 MG/ML VIAL 25 MG IVPUSH (22:38)
[2023-07-24] MEDS: oxyCODONE HCl Immed Release 5 MG TABLET PO (22:55)
[2023-07-24] MEDS: 0.9 % Sodium Chloride Flush 3 ML SYRINGE IVFLUSH (23:27)
[2023-07-25] VITALS (7 sets, daily range): BP systolic 96–116; BP diastolic 53–73; PULSE 87–100; RESP 16–18; TEMP 36.2–37.1; O2SAT 96–100; BMI 35.3
[2023-07-25] MEDS: Piperacillin Sodium/Tazobactam 3.375 GM in 0.9 % Sodium Chloride 50 ML IV ×4 (02:26→19:33)
[2023-07-25] MEDS: HYDROmorphone HCl 1 MG/ML SYRINGE 0.25 MG IVPUSH ×2 (03:00→07:42)
[2023-07-25 06:18] LABS: MANUAL DIFF FLAG NO
[2023-07-25 06:22] LABS: Basophils Percent Auto 0.2 % (0-2); Eosinophils Absolute Auto 0.1 X10*3/uL (0.0-0.4); Eosinophils Percent Auto 0.7 % (0-4); Hematocrit 37.9 % (37.0-47.0); Hemoglobin 13.1 g/dl (12.0-16.0); Imm Gran Abs Auto 0.06 X10*3/uL (0.00-0.03); Imm Gran Pct Auto 0.5 % (0.0-0.4); Lymphocytes Percent Auto 7.3 % (20-40); Mean Corpuscular HGB Conc 34.6 g/dl (31.0-35.0); Mean Corpuscular Volume 89.6 fL (80.0-98.0); Mean Platelet Volume 11.3 fL (9.4-12.3); Monocytes Percent Auto 7.4 % (2-11); Neutrophils Percent Auto 83.9 % (45-73); Platelet Count 168 X10*3/uL (160-400); Red Blood Count 4.23 X10*6/uL (4.20-5.50); White Blood Count 13.1 X10*3/uL (4.8-10.8)
[2023-07-25 06:41] LABS: Anion Gap 14 (12-20); Blood Urea Nitrogen 6 mg/dL (9-16); Calcium 8.7 mg/dL (8.4-10.2); Carbon Dioxide 21 mmol/L (22-29); Chloride 110 mmol/L (96-108); Creatinine Clr Calc Pharmacy 119.7; Estimated Glomerular Filt Rate > 60; Glucose Random 105 mg/dL (60-115); Potassium 3.6 mmol/L (3.3-5.1); Sodium 141 mmol/L (135-145)
[2023-07-25] MEDS: vancomycin HCL 1,500 MG in 0.9 % Sodium Chloride 500 ML 333.33 MG IV ×2 (08:27→20:17)
[2023-07-25] MEDS: diphenhydrAMINE HCL 50 MG/ML VIAL 25 MG IVPUSH (08:27)
--- NOTE | 2023-07-25 09:01 | PM.EVENT ---
Event Note Date of Service: 07/25/23 Event Note: A cons Time Spent With Patient Time: Total time managing care of this patient today ____ minutes.
--- NOTE | 2023-07-25 09:48 | PC.NURSE ---
Note that vulva fluid collection - this RN collected it in computer so the lab could process it on their end but was collected by Dr Johnson
--- NOTE | 2023-07-25 10:34 | P.PNIM_ITS ---
Subjective Subjective Date of Service: 07/25/23 Interval History: Being followed for right labial cellulitis/abscess Complaining of right labial pain, and nausea denies fever, no chills, no other acute issues history of prior recurrent labial abscesses requiring drainage. Review of Systems All other system reviewed and negative Physical Exam 2 Vital Signs: Vital Signs: Last Vital Signs Temp 97.1 F 07/25/23 07:56 Pulse 91 07/25/23 07:56 Resp 16 07/25/23 07:56 BP 116/57 L 07/25/23 07:56 Pulse Ox 96 07/25/23 07:56 O2 Del Method Room Air 07/25/23 07:56 BMI result Body Mass Index 35.3 Const: Other: General resting comfortably in mild distress due to pain Neck supple no JVD. CVS regular rate rhythm, Respiratory lungs clear to auscultation, no respiratory distress, no wheeze, no rhonchi. Gastrointestinal abdomen soft, non tender, bowel sounds audible Extremities no edema. Neuro non focal Skin no rash Psych appropriate Perineal examination significant swelling and tenderness right labia, no drainage Objective Data Active Medications Acetaminophen (Acetaminophen 325 Mg Tablet) 650 mg PO Q6H PRN PRN Reason: Pain, Mild (Pain Scale 1-3) Hydromorphone HCl (Hydromorphone Hcl 1 Mg/Ml Syringe) 0.25 mg IVPUSH Q4H PRN; Protocol PRN Reason: Pain, Severe (Pain Scale 7-10) Last Admin: 07/25/23 07:42 Dose: 0.25 mg Documented By: PENELOPE Piperacillin Sod/Tazobactam (Sod 3.375 gm/ Sodium Chloride) 50 mls @ 100 mls/hr IV Q6H [facility] Last Infusion: 07/25/23 08:30 Dose: Infused Documented By: PENELOPE Vancomycin HCl 1,500 mg/ (Sodium Chloride) 500 mls @ 333.333 mls/hr IV Q12H [facility] Last Admin: 07/25/23 08:27 Dose: 333.33 mls/hr Documented By: PENELOPE Magnesium Hydroxide (Milk Of Magnesia 30 Ml Oral.Susp) 30 ml PO DAILY PRN PRN Reason: Constipation Ondansetron HCl (Ondansetron Hcl 4 Mg/2 Ml Vial) 4 mg IVPUSH Q8H PRN PRN Reason: Nausea and Vomiting Oxycodone HCl (Oxycodone Hcl Immed Release 5 Mg Tablet) 5 mg PO Q6H PRN PRN Reason: Pain, Moderate(Pain Scale 4-6) Last Admin: 07/24/23 22:55 Dose: 5 mg Documented By: LUIS FERNANDO Pharmacy Consult (Consult Rx Vancomycin Dosing) 1 each MISCELLANE DAILY PRN PRN Reason: Consult order Sodium Chloride (0.9 % Sodium Chloride Flush 3 Ml Syringe) 3 ml IVFLUSH QSHIFT [facility] Last Admin: 07/25/23 08:01 Dose: Not Given Documented By: PENELOPE Non-Admin Reason: IV Running Labs 07/25/23 05:18 07/25/23 05:18 Labs: Laboratory Results - last 24 hr 07/24/23 07/24/23 07/24/23 18:27 19:09 19:10 MCV 89.2 MCH 31.2 MCHC 35.0 RDW 13.0 Plt Count 230 MPV 11.9 Immature Gran % (Auto) 0.4 Neut % (Auto) 74.3 H Lymph % (Auto) 16.8 L [place] % (Auto) 7.3 Eos % (Auto) 0.9 Baso % (Auto) 0.3 Lymph # (Auto) 2.2 [place] # (Auto) 0.9 Eos # (Auto) 0.1 Baso # (Auto) 0.0 Abs Immat Gran (auto) 0.05 H Absolute Neuts (auto) 9.5 H Absolute Nucleated RBC 0.000 Nucleated RBC % (auto) 0.0 Anion Gap 13 Estim Creat Clear Calc 124.1 Estimated GFR > 60 Random Glucose 105 Lactic Acid 1.1 Calcium 9.3 Magnesium 1.9 Total Bilirubin 0.6 AST 12 ALT 12 Alkaline Phosphatase 75 Total Protein 7.3 Albumin 4.0 07/25/23 05:18 MCV 89.6 MCH 31.0 MCHC 34.6 RDW 13.0 Plt Count 168 D MPV 11.3 Immature Gran % (Auto) 0.5 H Neut % (Auto) 83.9 H Lymph % (Auto) 7.3 L [place] % (Auto) 7.4 Eos % (Auto) 0.7 Baso % (Auto) 0.2 Lymph # (Auto) 1.0 L [place] # (Auto) 1.0 Eos # (Auto) 0.1 Baso # (Auto) 0.0 Abs Immat Gran (auto) 0.06 H Absolute Neuts (auto) 11.0 H Absolute Nucleated RBC 0.000 Nucleated RBC % (auto) 0.0 Anion Gap 14 Estim Creat Clear Calc 119.7 Estimated GFR > 60 Random Glucose 105 Lactic Acid Calcium 8.7 D Magnesium Total Bilirubin AST ALT Alkaline Phosphatase Total Protein Albumin Assessment and Plan (1) Abscess of labia: Status: Acute (2) Cellulitis of labia: Status: Acute Plan 37-year-old female with history of mild intermittent asthma, GERD, obesity admitted for further management of extensive cellulitis with abscess of the labia with sepsis #Cellulitis and abscess of right labia with sepsis -persistent leukocytosis , no fevers -pelvic ultrasound showed Thick-walled cystic mass in the left labia. Differential diagnosis include most likely a complex Bartholin's gland cyst or abscess -continue IV zosyn and vancomycin (initiated 07/23) -pain management using pain scale with oxycodone/hydromorphone Seen by OBGYN bedside I and D done fluid sent for cultures -follow CBC, cultures # mild intermittent asthma -no acute exacerbation, albuterol p.r.n. # obesity -weight loss efforts encouraged DVT prophylaxis-compression, early ambulation Full code Patient requires continued inpatient hospitalization for IV antibiotics for management of cellulitis and follow-up on cultures. Quality Stroke Does the patient have a stroke diagnosis?: No VTE Prior VTE?: No VTE Risk Level:: Medical - moderate - high VTE Device Contraindication: N/A - Device Ordered VTE Drug Contraindication: Treatment Not Indicated
--- NOTE | 2023-07-25 12:42 | MHC.CM.PN ---
PT LIVES WITH CHILDREN IS INDEPENDNT HAS NO SERVICES HAS OWN RIDE HOME
[2023-07-25] MEDS: 0.9 % Sodium Chloride Flush 3 ML SYRINGE IVFLUSH ×2 (15:22→23:47)
[2023-07-25] MEDS: ondansetron HCL 4 MG/2 ML VIAL IVPUSH (15:31)
[2023-07-25] MEDS: oxyCODONE HCl Immed Release 5 MG TABLET PO ×2 (15:32→22:41)
[2023-07-26] MEDS: Piperacillin Sodium/Tazobactam 3.375 GM in 0.9 % Sodium Chloride 50 ML IV (02:03)
[2023-07-26 02:48] VITALS: BP 109/61; PULSE 88; RESP 18; TEMP 36.7; O2SAT 97
[2023-07-26 07:03] LABS: Hematocrit 37.1 % (37.0-47.0); Hemoglobin 12.5 g/dl (12.0-16.0); Mean Corpuscular HGB Conc 33.7 g/dl (31.0-35.0); Mean Corpuscular Hemoglobin 30.9 pg (27.0-33.0); Mean Corpuscular Volume 91.6 fL (80.0-98.0); Mean Platelet Volume 11.5 fL (9.4-12.3); Platelet Count 166 X10*3/uL (160-400); Red Blood Count 4.05 X10*6/uL (4.20-5.50); White Blood Count 12.8 X10*3/uL (4.8-10.8)
[2023-07-26 07:27] LABS: Anion Gap 15 (12-20); Blood Urea Nitrogen 13 mg/dL (9-16); Calcium 8.4 mg/dL (8.4-10.2); Carbon Dioxide 18 mmol/L (22-29); Chloride 110 mmol/L (96-108); Glucose Random 98 mg/dL (60-115); Potassium 3.7 mmol/L (3.3-5.1); Sodium 139 mmol/L (135-145)
[2023-07-26 07:34] LABS: Creatinine Clr Calc Pharmacy 36.1; Estimated Glomerular Filt Rate 28
[2023-07-26 07:52] VITALS: BP 113/69; PULSE 85; RESP 17; TEMP 36.3; O2SAT 92
[2023-07-26] MEDS: 0.9 % Sodium Chloride Flush 3 ML SYRINGE IVFLUSH ×2 (08:26→23:49)
[2023-07-26] MEDS: 0.9 % Sodium Chloride 1,000 ML 100 ML IVCONT (08:26)
[2023-07-26] MEDS: oxyCODONE HCl Immed Release 5 MG TABLET PO ×2 (08:35→20:16)
[2023-07-26 09:04] LABS: Vancomycin Random 33.4 mcg/mL (15-20)
--- NOTE | 2023-07-26 09:20 | HE.PHANOTE ---
Re: Daljit Renal function severely dropped, SCr 0.61 --> 2.02). Dr. Anton DC'd daljit and danielle for now. Random trough returned as 33.4, last dose was 07/24 @20:17. Next trough is 07/26 at 08:00.
--- NOTE | 2023-07-26 09:36 | MHC.CM.PN ---
pcp list given to pt prior to dc
[2023-07-26] MEDS: ondansetron HCL 4 MG/2 ML VIAL IVPUSH (09:40)
--- NOTE | 2023-07-26 10:50 | HO.PM.IMPN ---
Subjective Subjective Date of Service: 07/26/23 Interval History: Complaining of mid abdominal discomfort and mild nausea, no bowel movement in last several days, no fevers, no chills, complaining of persistent pain at site of right labial abscess. Review of Systems All other system reviewed and negative Physical Exam Vital Signs: Vital Signs: Last Vital Signs Temp 97.3 F 07/26/23 07:52 Pulse 85 07/26/23 07:52 Resp 17 07/26/23 07:52 BP 113/69 07/26/23 07:52 Pulse Ox 92 07/26/23 07:52 O2 Del Method Room Air 07/26/23 07:52 BMI result Body Mass Index 35.3 Const: Other: General awake alert x3 no acute distress Neck supple no JVD. CVS regular rate rhythm, Respiratory lungs clear to auscultation, no respiratory distress, no wheeze, no rhonchi. Gastrointestinal abdomen soft, mild epigastric tenderness, bowel sounds audible Extremities no edema. Neuro non focal Skin no rash Psych appropriate Perineal examination improvement in right labial and vulvar swelling , minimal serosanguineous drainage from right labial incision Objective Data Active Medications Acetaminophen (Acetaminophen 325 Mg Tablet) 650 mg PO Q6H PRN PRN Reason: Pain, Mild (Pain Scale 1-3) Docusate Sodium (Docusate Sodium 100 Mg Capsule) 100 mg PO BEDTIME [facility] Famotidine (Famotidine 20 Mg Tablet) 20 mg PO DAILY [facility] Hydromorphone HCl (Hydromorphone Hcl 1 Mg/Ml Syringe) 0.25 mg IVPUSH Q4H PRN; Protocol PRN Reason: Pain, Severe (Pain Scale 7-10) Last Admin: 07/25/23 07:42 Dose: 0.25 mg Documented By: PENELOPE Sodium Chloride (Ns) 1,000 mls @ 100 mls/hr IVCONT .Q10H [facility] Stop: 07/26/23 17:59 Last Admin: 07/26/23 08:26 Dose: 100 mls/hr Documented By: MEREDITH Vancomycin HCl 500 mg/ Sodium (Chloride) 110 mls @ 110 mls/hr IV Q24H [facility] Magnesium Hydroxide (Milk Of Magnesia 30 Ml Oral.Susp) 30 ml PO DAILY PRN PRN Reason: Constipation Ondansetron HCl (Ondansetron Hcl 4 Mg/2 Ml Vial) 4 mg IVPUSH Q8H PRN PRN Reason: Nausea and Vomiting Last Admin: 07/26/23 09:40 Dose: 4 mg Documented By: MEREDITH Oxycodone HCl (Oxycodone Hcl Immed Release 5 Mg Tablet) 5 mg PO Q6H PRN PRN Reason: Pain, Moderate(Pain Scale 4-6) Last Admin: 07/26/23 08:35 Dose: 5 mg Documented By: MEREDITH Pharmacy Consult (Consult Rx Vancomycin Dosing) 1 each MISCELLANE DAILY PRN PRN Reason: Consult order Sodium Chloride (0.9 % Sodium Chloride Flush 3 Ml Syringe) 3 ml IVFLUSH QSHIFT [facility] Last Admin: 07/26/23 08:26 Dose: 3 ml Documented By: MEREDITH Labs 07/26/23 05:46 07/26/23 05:46 Labs: Laboratory Results - last 24 hr 07/26/23 07/26/23 05:46 08:26 MCV 91.6 MCH 30.9 MCHC 33.7 RDW 13.0 Plt Count 166 MPV 11.5 Absolute Nucleated RBC 0.000 Nucleated RBC % (auto) 0.0 Anion Gap 15 Estim Creat Clear Calc 36.1 Estimated GFR 28 Random Glucose 98 Calcium 8.4 Random Vancomycin 33.4 H* Microbiology Microbiology Results: Microbiology 07/25/23 Unknown Gram Stain - Final Vulva Routine Culture - Preliminary No growth to date. 07/24/23 19:33 Blood Culture - Preliminary Blood - Venous No growth after 24 hours. 07/24/23 19:10 Blood Culture - Preliminary Blood - Venous No growth after 24 hours. Assessment and Plan (1) Abscess of labia: Status: Acute (2) Cellulitis of labia: Status: Acute Plan 37-year-old female with history of mild intermittent asthma, GERD, obesity admitted for further management of extensive cellulitis with abscess of the labia with sepsis #Cellulitis and abscess of right labia with sepsis -persistent mild leukocytosis , no fevers -pelvic ultrasound showed Thick-walled cystic mass in the left labia. Differential diagnosis include most likely a complex Bartholin's gland cyst or abscess -on IV zosyn and vancomycin (initiated 07/23), both antibiotic discontinued due to acute renal failure -will transition to by mouth antibiotics doxycycline and Augmentin, that will cover MRSA and anaerobes . -continue oxycodone/hydromorphone for pain s/p bedside I and D on 07/[address] Johnson, abscess culture no growth, preliminary blood cultures negative times 24 hours -follow CBC, cultures -abdominal pain likely due to constipation will treat with stool softeners and add Pepcid # acute kidney injury creatinine bumped from 0.61-2.02, likely due to vanco toxicity, stopped IV vancomycin and IV Zosyn, IV fluid 100 mL I started, renal consult obtained, random vanco 33.4 . # mild intermittent asthma -no acute exacerbation, albuterol p.r.n. # obesity -weight loss efforts encouraged DVT prophylaxis-compression, early ambulation Full code Patient requires continued inpatient hospitalization for acute kidney injury and for management of cellulitis and follow-up on cultures and renal function. Quality Stroke Does the patient have a stroke diagnosis?: No VTE Prior VTE?: No VTE Risk Level:: Medical - moderate - high VTE Device Contraindication: N/A - Device Ordered VTE Drug Contraindication: Treatment Not Indicated
[2023-07-26] MEDS: Lactulose 20 GM/30 ML SOLUTION PO (12:27)
[2023-07-26] MEDS: Doxycycline Monohydrate 100 MG CAPSULE PO ×2 (12:28→20:11)
[2023-07-26] MEDS: Amoxicillin/Potassium Clav 500 MG TABLET PO ×2 (12:28→20:10)
[2023-07-26] MEDS: Famotidine 20 MG TABLET PO (12:28)
--- NOTE | 2023-07-26 13:26 | PM.CNNEP ---
History of Present Illness Reason for Consult Consult date: 07/26/23 Reason for consult: BARTOLO Chief Complaint Chief complaint: Bartholins abscess, labial cellulitis, sepsis History of Present Illness Narrative: 7-year-old female with normal renal function at baseline presented to the ER for evaluation of labial pain and swelling that has been ongoing for 4 days. Reports about 4 days ago had a tiny pustule on the right labia that has resulted in significant swelling and pain that is limiting her ability to walk secondary to the pain intensity. She has been using warm compresses with limited relief. States she has had recurrent Bartholin's cyst/abscesses that have required draining in the past. She denies any fevers or chills. No nausea or vomiting. On arrival, patient with mild tachycardia into the 90s. She is afebrile with otherwise stable vital signs. There is a leukocytosis of 12.8. Renal function and electrolyte levels normal. Lactic acid 1.1. Pelvis ultrasound showed 2 cm x 1 cm abscess, possibly of right Bartholin's gland. In the ED, has been given IV Zosyn, vancomycin, fentanyl and was admitted for further management. Her serum creatinine has gone over 2.0. Nephrology has been consulted to assist in her clinical care during her current hospital stay Review of Systems Review of Systems Yes all other systems are reviewed and are negative PMFSH Past Medical History Medical History Steatosis, liver Depression Migraines Asthma Constipation Morbid obesity Family History Family History Father Lung cancer Mother No problems noted. Sister No problems noted. Sister No problems noted. Son No problems noted. Daughter No problems noted. Surgical History Surgical History S/P tubal ligation S/P laparoscopic cholecystectomy Social History Social History Household Members: Family Housing: Apartment Are you a primary patient care secretary to a significant other at home: No Do you presently have visiting nurse or other home services: No Alcohol intake: never Patient Tobacco Use Status: Never used Tobacco service: No Current occupational status: unemployed Meds Allergies Allergy/AdvReac Type Severity Reaction Status Date / Time aspirin [ASA] Allergy Unknown SWELLING Verified 07/24/23 11:00 morphine Allergy Hypotension Verified 07/24/23 11:00 Active Medications: Current Medications Acetaminophen (Acetaminophen 325 Mg Tablet) 650 mg PO Q6H PRN PRN Reason: Pain, Mild (Pain Scale 1-3) Amoxicillin/Clavulanate Potassium (Amoxicillin/Potassium Clav 500 Mg Tablet) 500 mg PO TID [facility] Last Admin: 07/26/23 12:28 Dose: 500 mg Docusate Sodium (Docusate Sodium 100 Mg Capsule) 100 mg PO BEDTIME [facility] Doxycycline Monohydrate (Doxycycline Monohydrate 100 Mg Capsule) 100 mg PO BID [facility] Last Admin: 07/26/23 12:28 Dose: 100 mg Famotidine (Famotidine 20 Mg Tablet) 20 mg PO DAILY [facility] Last Admin: 07/26/23 12:28 Dose: 20 mg Hydromorphone HCl (Hydromorphone Hcl 1 Mg/Ml Syringe) 0.25 mg IVPUSH Q4H PRN; Protocol PRN Reason: Pain, Severe (Pain Scale 7-10) Last Admin: 07/25/23 07:42 Dose: 0.25 mg Sodium Chloride (Ns) 1,000 mls @ 100 mls/hr IVCONT .Q10H [facility] Stop: 07/26/23 17:59 Last Admin: 07/26/23 08:26 Dose: 100 mls/hr Magnesium Hydroxide (Milk Of Magnesia 30 Ml Oral.Susp) 30 ml PO DAILY PRN PRN Reason: Constipation Ondansetron HCl (Ondansetron Hcl 4 Mg/2 Ml Vial) 4 mg IVPUSH Q8H PRN PRN Reason: Nausea and Vomiting Last Admin: 07/26/23 09:40 Dose: 4 mg Oxycodone HCl (Oxycodone Hcl Immed Release 5 Mg Tablet) 5 mg PO Q6H PRN PRN Reason: Pain, Moderate(Pain Scale 4-6) Last Admin: 07/26/23 08:35 Dose: 5 mg Pharmacy Consult (Consult Rx Vancomycin Dosing) 1 each MISCELLANE DAILY PRN PRN Reason: Consult order Sodium Chloride (0.9 % Sodium Chloride Flush 3 Ml Syringe) 3 ml IVFLUSH QSHIFT [facility] Last Admin: 07/26/23 08:26 Dose: 3 ml Home Medications ?Medication ?Instructions ?Recorded ?Confirmed ?Last Taken ?Type No Known Home Meds 07/24/23 07/24/23 Unknown History Physical Exam Vital Signs: Last Vital Signs Temp 97.3 F 07/26/23 07:52 Pulse 85 07/26/23 07:52 Resp 17 07/26/23 07:52 BP 113/69 07/26/23 07:52 Pulse Ox 92 07/26/23 07:52 O2 Del Method Room Air 07/26/23 07:52 BMI result Body Mass Index 35.3 Const General: no acute distress Orientation/consciousness: patient oriented x3 Eyes EOM: EOMs intact bilaterally Neck Neck: Yes supple Resp Auscultation: diminished lung sounds Cardio Rate: regular rate GI Palpation (GI): Soft to palpation Neuro General: patient oriented x3 and moves all extremities Extrem General: Yes no clubbing, cyanosis or edema Results Lab Results 07/26/23 05:46 07/26/23 05:46 Lab results: Chemistry 07/24/23 07/25/23 07/26/23 19:10 05:18 05:46 Sodium 141 141 139 Potassium 3.5 3.6 3.7 Carbon Dioxide 25 21 L 18 L BUN 7 L 6 L 13 Creatinine 0.58 0.61 2.02 H Calcium 9.3 8.7 D 8.4 Hematology 07/24/23 07/25/23 07/26/23 18:27 05:18 05:46 WBC 12.8 H 13.1 H 12.8 H Hgb 14.1 13.1 12.5 Plt Count 230 168 D 166 Assessment and Plan (1) BARTOLO (acute kidney injury): Status: Acute Plan BARTOLO likely from vancomycin toxicity DDx Mariama infectious GN/AIN- unlikely No reason to suspect Obstructive Uropathy D/Yonas Vanomycin; Ordered C/C4 Continue rest of current supportive management for now No indication for renal replacement for now Labs AM; Shall closely F/U( D/W family as well) Procedures Date of Service Date of Service: 07/26/23
[2023-07-26 13:53] LABS: MRSA Nasal PCR NEGATIVE (Negative); SA Nasal PCR NEGATIVE (Negative)
[2023-07-26 15:11] VITALS: BP 112/69; PULSE 84; RESP 18; TEMP 36.1; O2SAT 98
--- NOTE | 2023-07-26 15:50 | MHC.CM.PN ---
[per rounds pt remains in acute renal failure no medically stable for dc
[2023-07-26 19:12] VITALS: BP 117/73; PULSE 84; RESP 18; TEMP 36.1; O2SAT 100
[2023-07-26] MEDS: Docusate Sodium 100 MG CAPSULE PO (20:11)
[2023-07-27 04:00] VITALS: BP 126/75; PULSE 80; RESP 16; TEMP 36.4; O2SAT 100
[2023-07-27 07:03] LABS: Hematocrit 35.6 % (37.0-47.0); Hemoglobin 11.9 g/dl (12.0-16.0); Mean Corpuscular HGB Conc 33.4 g/dl (31.0-35.0); Mean Corpuscular Hemoglobin 30.4 pg (27.0-33.0); Mean Platelet Volume 11.6 fL (9.4-12.3); Platelet Count 150 X10*3/uL (160-400); Red Blood Count 3.91 X10*6/uL (4.20-5.50); Red Cell Distribution Width 13.2 % (11.0-16.0); White Blood Count 11.3 X10*3/uL (4.8-10.8)
[2023-07-27 07:23] LABS: Anion Gap 14 (12-20); Blood Urea Nitrogen 14 mg/dL (9-16); Calcium 8.6 mg/dL (8.4-10.2); Carbon Dioxide 19 mmol/L (22-29); Chloride 115 mmol/L (96-108); Glucose Random 105 mg/dL (60-115); Potassium 3.8 mmol/L (3.3-5.1); Sodium 144 mmol/L (135-145)
[2023-07-27 07:34] VITALS: BP 128/82; PULSE 72; RESP 16; TEMP 36; O2SAT 98
[2023-07-27 07:40] LABS: Creatinine Clr Calc Pharmacy 24.4; Estimated Glomerular Filt Rate 18
[2023-07-27] MEDS: Famotidine 20 MG TABLET PO (08:48)
[2023-07-27] MEDS: oxyCODONE HCl Immed Release 5 MG TABLET PO ×2 (08:52→19:02)
[2023-07-27] MEDS: 0.9 % Sodium Chloride Flush 3 ML SYRINGE IVFLUSH (08:53)
[2023-07-27] MEDS: ondansetron HCL 4 MG/2 ML VIAL IVPUSH ×2 (09:01→20:19)
[2023-07-27 09:51] LABS: Vancomycin Random 22.1 mcg/mL (15-20)
[2023-07-27] MEDS: Doxycycline Hyclate 100 MG in 0.9 % Sodium Chloride 250 ML 166.67 MG IV ×2 (12:47→20:19)
[2023-07-27] MEDS: HYDROmorphone HCl 1 MG/ML SYRINGE 0.25 MG IVPUSH (12:48)
--- NOTE | 2023-07-27 12:50 | HO.PM.IMPN ---
Subjective Subjective Date of Service: 07/27/23 Interval History: Complaining of mid abdominal discomfort and nausea, had a normal bowel movement yesterday denies fever and chills, good pain control right labia at site of I and D. Review of Systems All other system reviewed and negative Physical Exam Vital Signs: Vital Signs: Last Vital Signs Temp 96.8 F 07/27/23 07:34 Pulse 72 07/27/23 07:34 Resp 16 07/27/23 07:34 BP 128/82 07/27/23 07:34 Pulse Ox 98 07/27/23 07:34 O2 Del Method Room Air 07/27/23 07:34 BMI result Body Mass Index 35.3 Const: Other: General awake alert x3 no acute distress Neck supple no JVD. CVS regular rate rhythm, Respiratory lungs clear to auscultation, no respiratory distress, no wheeze, no rhonchi. Gastrointestinal abdomen soft, mild mid abdominal tenderness, no rebound, no rigidity, bowel sounds audible Extremities no edema. Neuro non focal Skin no rash Psych appropriate Perineal examination improvement in right labial and vulvar swelling , no serosanguineous drainage from right labial incision Objective Data Active Medications Acetaminophen (Acetaminophen 325 Mg Tablet) 650 mg PO Q6H PRN PRN Reason: Pain, Mild (Pain Scale 1-3) Amoxicillin/Clavulanate Potassium (Amoxicillin/Potassium Clav 500 Mg Tablet) 500 mg PO Q12H [facility] Last Admin: 07/27/23 11:22 Dose: Not Given Documented By: MEREDITH Non-Admin Reason: nausea. dr figueroa aware. Calcium Carbonate (Calcium Carbonate 750 Mg Tab.Chew) 750 mg PO Q6H PRN PRN Reason: Dyspepsia Docusate Sodium (Docusate Sodium 100 Mg Capsule) 100 mg PO BEDTIME [facility] Last Admin: 07/26/23 20:11 Dose: 100 mg Documented By: KARIN Famotidine (Famotidine 20 Mg Tablet) 20 mg PO DAILY [facility] Last Admin: 07/27/23 08:48 Dose: 20 mg Documented By: MEREDITH Hydromorphone HCl (Hydromorphone Hcl 1 Mg/Ml Syringe) 0.25 mg IVPUSH Q4H PRN; Protocol PRN Reason: Pain, Severe (Pain Scale 7-10) Last Admin: 07/27/23 12:48 Dose: 0.25 mg Documented By: MEREDITH Doxycycline Hyclate 100 mg/ (Sodium Chloride) 250 mls @ 166.67 mls/hr IV BID [facility] Last Admin: 07/27/23 12:47 Dose: 166.67 mls/hr Documented By: MEREDITH Lactated Ringer's (Lr) 1,000 mls @ 100 mls/hr IVCONT .Q10H [facility] Stop: 07/28/23 08:59 Magnesium Hydroxide (Milk Of Magnesia 30 Ml Oral.Susp) 30 ml PO DAILY PRN PRN Reason: Constipation Ondansetron HCl (Ondansetron Hcl 4 Mg/2 Ml Vial) 4 mg IVPUSH Q8H PRN PRN Reason: Nausea and Vomiting Last Admin: 07/27/23 09:01 Dose: 4 mg Documented By: MEREDITH Oxycodone HCl (Oxycodone Hcl Immed Release 5 Mg Tablet) 5 mg PO Q6H PRN PRN Reason: Pain, Moderate(Pain Scale 4-6) Last Admin: 07/27/23 08:52 Dose: 5 mg Documented By: MEREDITH Pharmacy Consult (Consult Rx Vancomycin Dosing) 1 each MISCELLANE DAILY PRN PRN Reason: Consult order Sodium Chloride (0.9 % Sodium Chloride Flush 3 Ml Syringe) 3 ml IVFLUSH QSHIFT [facility] Last Admin: 07/27/23 08:53 Dose: 3 ml Documented By: MEREDITH Labs 07/27/23 06:07 07/27/23 06:07 Labs: Laboratory Results - last 24 hr 07/26/23 07/27/23 07/27/23 12:31 06:07 09:12 MCV 91.0 MCH 30.4 MCHC 33.4 RDW 13.2 Plt Count 150 L MPV 11.6 Absolute Nucleated RBC 0.000 Nucleated RBC % (auto) 0.0 Anion Gap 14 Estim Creat Clear Calc 24.4 Estimated GFR 18 Random Glucose 105 Calcium 8.6 Nasal Screen MRSA (PCR) NEGATIVE Nasal S. aureus Screen NEGATIVE Nasal MRSA/S.aureus Interp SEE NOTE Random Vancomycin 22.1 H Microbiology Microbiology Results: Microbiology 07/25/23 Unknown Gram Stain - Final Vulva Routine Culture - Preliminary Culture in progress. 07/24/23 19:33 Blood Culture - Preliminary Blood - Venous No growth after 48 hours. 07/24/23 19:10 Blood Culture - Preliminary Blood - Venous No growth after 48 hours. Assessment and Plan (1) Abscess of labia: Status: Acute (2) Cellulitis of labia: Status: Acute Plan 37-year-old female with history of mild intermittent asthma, GERD, obesity admitted for further management of extensive cellulitis with abscess of the labia with sepsis #Cellulitis and abscess of right labia with sepsis -no fevers, pain improved -pelvic ultrasound showed Thick-walled cystic mass in the left labia. Differential diagnosis include most likely a complex Bartholin's gland cyst or abscess -s/p IV zosyn and vancomycin both antibiotic discontinued due to acute renal failure on 07/25 -unable to tolerate by mouth antibiotics doxycycline and Augmentin, therefore will transition to IV doxycycline and hold Augmentin -minimize narcotics due to nausea s/p bedside I and D on 07/[address] Johnson, abscess culture in progress, blood cultures negative times 48 hours -follow CBC, cultures #abdominal pain likely multifactorial due to antibiotics, narcotics and BARTOLO continue conservative management, minimize narcotics. # acute kidney injury creatinine bumped from 0.61-2.02. 2.99 likely vanco toxicity, vanco discontinued status post 1 L of IV fluids, will give additional IV fluids since patient has decreased by mouth intake due to nausea and abdominal discomfort follow BMP, case discussed with Nephrology. Inform patient and at bedside regarding treatment plan. # mild intermittent asthma -no acute exacerbation, albuterol p.r.n. # obesity -weight loss efforts encouraged DVT prophylaxis-compression, early ambulation Full code Patient requires continued inpatient hospitalization for acute kidney injury and for management of cellulitis and follow-up on cultures and renal function. Quality Stroke Does the patient have a stroke diagnosis?: No VTE Prior VTE?: No VTE Risk Level:: Medical - moderate - high VTE Device Contraindication: N/A - Device Ordered VTE Drug Contraindication: Treatment Not Indicated
[2023-07-27] MEDS: Calcium Carbonate 750 MG TAB.CHEW PO (13:34)
[2023-07-27] MEDS: Lactated Ringers 1,000 ML 100 ML IVCONT ×2 (14:09→23:42)
[2023-07-27 15:15] VITALS: BP 112/69; PULSE 81; RESP 18; TEMP 36.2; O2SAT 99
[2023-07-27 18:35] LABS: Vancomycin Random 18.7 mcg/mL (15-20)
[2023-07-27 19:21] VITALS: BP 130/61; PULSE 87; RESP 18; TEMP 36.6; O2SAT 100
--- NOTE | 2023-07-27 19:29 | P.PNNP_ITS ---
Subjective Subjective Date of Service: 07/27/23 Interval history: Has some mid abdominal discomfort and nausea, denies fever and chills Physical Exam 2 Vital Signs: Vital Signs: Last Vital Signs Temp 97.9 F 07/27/23 19:21 Pulse 87 07/27/23 19:21 Resp 18 07/27/23 19:21 BP 130/61 07/27/23 19:21 Pulse Ox 100 07/27/23 19:21 O2 Del Method Room Air 07/27/23 19:21 BMI result Body Mass Index 35.3 Const: General: no acute distress Orientation/consciousness: patient oriented x3 Eyes: EOM: EOMs intact bilaterally Neck: Neck: Yes supple Resp: Auscultation: diminished lung sounds Cardio: Rate: regular rate GI: Palpation (GI): Soft to palpation Skin: General skin exam: no rashes or lesions noted Neuro: General: patient oriented x3 and moves all extremities Extrem: General: Yes no pedal edema Objective Data Labs 07/27/23 06:07 07/27/23 06:07 Labs: Laboratory Results - last 24 hr 07/27/23 07/27/23 07/27/23 06:07 09:12 18:10 WBC 11.3 H RBC 3.91 L Hgb 11.9 L Hct 35.6 L MCV 91.0 MCH 30.4 MCHC 33.4 RDW 13.2 Plt Count 150 L MPV 11.6 Absolute Nucleated RBC 0.000 Nucleated RBC % (auto) 0.0 Sodium 144 Potassium 3.8 Chloride 115 H Carbon Dioxide 19 L Anion Gap 14 BUN 14 Creatinine 2.99 H Estim Creat Clear Calc 24.4 Estimated GFR 18 Random Glucose 105 Calcium 8.6 Random Vancomycin 22.1 H 18.7 Microbiology Microbiology Results: Microbiology 07/25/23 Unknown Vulva Gram Stain - Final 07/25/23 Unknown Vulva Routine Culture - Preliminary Culture in progress. 07/24/23 19:33 Blood - Venous Blood Culture - Preliminary No growth after 48 hours. 07/24/23 19:10 Blood - Venous Blood Culture - Preliminary No growth after 48 hours. Procedures Date of Service Date of Service: 07/27/23 Assessment & Plan Assessment and plan (1) BARTOLO (acute kidney injury): Status: Acute Plan BARTOLO likely from vancomycin toxicity DDx Mariama infectious GN/AIN- unlikely No reason to suspect Obstructive Uropathy D/Yonas Vanomycin; C3/C4- pending Serum creatinine not plateaued yet Continue rest of current supportive management for now No indication for renal replacement for now Labs AM; Shall closely F/U Progress Note: Quality Stroke Does the patient have a stroke diagnosis?: No
[2023-07-28 04:00] VITALS: BP 129/76; PULSE 65; RESP 16; TEMP 36.1; O2SAT 97
[2023-07-28 06:25] LABS: Hematocrit 33.3 % (37.0-47.0); Hemoglobin 11.4 g/dl (12.0-16.0); Mean Corpuscular HGB Conc 34.2 g/dl (31.0-35.0); Mean Corpuscular Hemoglobin 31.1 pg (27.0-33.0); Mean Platelet Volume 11.9 fL (9.4-12.3); Platelet Count 145 X10*3/uL (160-400); Red Blood Count 3.66 X10*6/uL (4.20-5.50); Red Cell Distribution Width 13.2 % (11.0-16.0); White Blood Count 9.9 X10*3/uL (4.8-10.8)
[2023-07-28 06:47] LABS: Anion Gap 12 (12-20); Blood Urea Nitrogen 14 mg/dL (9-16); Calcium 8.6 mg/dL (8.4-10.2); Carbon Dioxide 22 mmol/L (22-29); Chloride 114 mmol/L (96-108); Creatinine Clr Calc Pharmacy 23.6; Estimated Glomerular Filt Rate 17; Glucose Random 107 mg/dL (60-115); Potassium 4.2 mmol/L (3.3-5.1); Sodium 144 mmol/L (135-145)
[2023-07-28 07:31] VITALS: BP 128/74; PULSE 64; RESP 20; TEMP 36.3; O2SAT 99
[2023-07-28] MEDS: Doxycycline Hyclate 100 MG in 0.9 % Sodium Chloride 250 ML 166.67 MG IV ×2 (07:51→20:26)
[2023-07-28] MEDS: HYDROmorphone HCl 1 MG/ML SYRINGE 0.25 MG IVPUSH (07:51)
[2023-07-28] MEDS: ondansetron HCL 4 MG/2 ML VIAL IVPUSH (08:01)
--- NOTE | 2023-07-28 08:31 | P.PNNP_ITS ---
Subjective Subjective Date of Service: 07/28/23 Interval history: Events noted. All recent data reviewed. D/W Med Attending Physical Exam 2 Vital Signs: Vital Signs: Last Vital Signs Temp 97.4 F 07/28/23 07:31 Pulse 64 07/28/23 07:31 Resp 20 07/28/23 07:31 BP 128/74 07/28/23 07:31 Pulse Ox 99 07/28/23 07:31 O2 Del Method Room Air 07/28/23 07:31 BMI result Body Mass Index 35.3 Const: General: no acute distress Orientation/consciousness: patient oriented x3 Eyes: EOM: EOMs intact bilaterally Neck: Neck: Yes supple Resp: Auscultation: diminished lung sounds Cardio: Rate: regular rate GI: Palpation (GI): Soft to palpation Neuro: General: patient oriented x3 and moves all extremities Objective Data Labs 07/28/23 05:20 07/28/23 05:20 Labs: Laboratory Results - last 24 hr 07/27/23 07/27/23 07/28/23 09:12 18:10 05:20 WBC 9.9 RBC 3.66 L Hgb 11.4 L Hct 33.3 L MCV 91.0 MCH 31.1 MCHC 34.2 RDW 13.2 Plt Count 145 L MPV 11.9 Absolute Nucleated RBC 0.000 Nucleated RBC % (auto) 0.0 Sodium 144 Potassium 4.2 Chloride 114 H Carbon Dioxide 22 Anion Gap 12 BUN 14 Creatinine 3.08 H Estim Creat Clear Calc 23.6 Estimated GFR 17 Random Glucose 107 Calcium 8.6 Random Vancomycin 22.1 H 18.7 Microbiology Microbiology Results: Microbiology 07/25/23 Unknown Vulva Gram Stain - Final 07/25/23 Unknown Vulva Routine Culture - Preliminary Culture in progress. 07/24/23 19:33 Blood - Venous Blood Culture - Preliminary No growth after 48 hours. 07/24/23 19:10 Blood - Venous Blood Culture - Preliminary No growth after 48 hours. Procedures Date of Service Date of Service: 07/28/23 Assessment & Plan Assessment and plan (1) BARTOLO (acute kidney injury): Status: Acute Plan BARTOLO likely from vancomycin toxicity DDx Mariama infectious GN/AIN- unlikely No reason to suspect Obstructive Uropathy D/Yonas Vanomycin; C3/C4- pending Serum creatinine not plateaued yet Continue rest of current supportive management for now No indication for renal replacement for now Can be D/Yonas when serum creatinine plateaues Labs AM; Will need close outpatient in 1 week with me when D/Yonas Progress Note: Quality Stroke Does the patient have a stroke diagnosis?: No
[2023-07-28 10:49] LABS: Complement C3 131 mg/dL (83-193)
--- NOTE | 2023-07-28 10:59 | MHC.CM.PN ---
EMR REVIEWED AND PER MD ROUNDS, PT IS NOT MEDICALLY CLEARED FOR DC. PT CREAT HAS NOT YET PLATEAUED. CM WILL CONTINUE TO FOLLOW FOR ANY CHANGE TO DC PLAN/NEEDS.
--- NOTE | 2023-07-28 11:36 | HO.PM.IMPN ---
Subjective Subjective Date of Service: 07/28/23 Interval History: History obtained via level vial inspector and tester. Being followed for right labial abscess status post I and D/acute renal injury due to vanco toxicity. Complaining of persistent mid abdominal pain, bloating associated with nausea , vomiting and decreased by mouth intake, denies fever, no chills, pain at site of right labial abscess improved now having monthly periods. No lightheadedness, no dizziness, last bowel movement 2 days ago. Review of Systems All other system reviewed and negative Physical Exam Vital Signs: Vital Signs: Last Vital Signs Temp 97.4 F 07/28/23 07:31 Pulse 64 07/28/23 07:31 Resp 20 07/28/23 07:31 BP 128/74 07/28/23 07:31 Pulse Ox 99 07/28/23 07:31 O2 Del Method Room Air 07/28/23 07:31 BMI result Body Mass Index 35.3 Const: Other: General awake alert x3 no acute distress Neck supple no JVD. CVS regular rate rhythm, Respiratory lungs clear to auscultation, no respiratory distress, no wheeze, no rhonchi. Gastrointestinal abdomen soft, mild mid abdominal tenderness, no rebound, no rigidity, bowel sounds audible Extremities no edema. Neuro non focal Skin no rash Psych appropriate Perineal examination deferred today due to periods (yesterday noted to have improvement in right labial and vulvar swelling , no serosanguineous drainage from right labial incision) Objective Data Active Medications Acetaminophen (Acetaminophen 325 Mg Tablet) 650 mg PO Q6H PRN PRN Reason: Pain, Mild (Pain Scale 1-3) Amoxicillin/Clavulanate Potassium (Amoxicillin/Potassium Clav 500 Mg Tablet) 500 mg PO Q12H [facility] Last Admin: 07/27/23 19:01 Dose: Not Given Documented By: LUIS FERNANDO Non-Admin Reason: Patient Refused Calcium Carbonate (Calcium Carbonate 750 Mg Tab.Chew) 750 mg PO Q6H PRN PRN Reason: Dyspepsia Last Admin: 07/27/23 13:34 Dose: 750 mg Documented By: MEREDITH Dicyclomine HCl (Dicyclomine Hcl 10 Mg Capsule) 10 mg PO QIDACHS PRN PRN Reason: abdomen pain Docusate Sodium (Docusate Sodium 100 Mg Capsule) 100 mg PO BEDTIME [facility] Last Admin: 07/27/23 20:27 Dose: Not Given Documented By: LUIS FERNANDO Non-Admin Reason: Nausea Famotidine (Famotidine 20 Mg Tablet) 20 mg PO DAILY [facility] Last Admin: 07/27/23 08:48 Dose: 20 mg Documented By: MEREDITH Hydromorphone HCl (Hydromorphone Hcl 1 Mg/Ml Syringe) 0.25 mg IVPUSH Q4H PRN; Protocol PRN Reason: Pain, Severe (Pain Scale 7-10) Last Admin: 07/28/23 07:51 Dose: 0.25 mg Documented By: MEREDITH Doxycycline Hyclate 100 mg/ (Sodium Chloride) 250 mls @ 166.67 mls/hr IV BID [facility] Last Infusion: 07/28/23 10:01 Dose: Infused Documented By: MEREDITH Magnesium Hydroxide (Milk Of Magnesia 30 Ml Oral.Susp) 30 ml PO DAILY PRN PRN Reason: Constipation Metoclopramide HCl (Metoclopramide Hcl 10 Mg/2 Ml Vial) 5 mg IVPUSH Q6H PRN PRN Reason: Nausea and Vomiting Sodium Chloride (0.9 % Sodium Chloride Flush 3 Ml Syringe) 3 ml IVFLUSH QSHIFT [facility] Last Admin: 07/28/23 08:05 Dose: Not Given Documented By: MEREDITH Non-Admin Reason: IV Running Labs 07/28/23 05:20 07/28/23 05:20 Labs: Laboratory Results - last 24 hr 07/27/23 07/27/23 07/28/23 06:07 18:10 05:20 MCV 91.0 MCH 31.1 MCHC 34.2 RDW 13.2 Plt Count 145 L MPV 11.9 Absolute Nucleated RBC 0.000 Nucleated RBC % (auto) 0.0 Anion Gap 12 Estim Creat Clear Calc 23.6 Estimated GFR 17 Random Glucose 107 Calcium 8.6 Random Vancomycin 18.7 Complement C3 131 Complement C4 33 Microbiology Microbiology Results: Microbiology 07/25/23 Unknown Gram Stain - Final Vulva Routine Culture - Final Corynebacterium species Assessment and Plan (1) Abscess of labia: Status: Acute (2) Cellulitis of labia: Status: Acute Plan 37-year-old female with history of mild intermittent asthma, GERD, obesity admitted for further management of extensive cellulitis with abscess of the labia with sepsis #Cellulitis and abscess of right labia with sepsis -no fevers, pain improved, WBC normalized -pelvic ultrasound showed Thick-walled cystic mass in the left labia. Differential diagnosis include most likely a complex Bartholin's gland cyst or abscess - s/p bedside I and D on 07/[address] Johnson, abscess culture grew Corynebacterium species, blood cultures negative times 48 hours Status post IV vanco/Zosyn 07/23- developed vanco toxicity creatinine bumped from 0.61-2.02, vancomycin and Zosyn discontinued patient placed on Augmentin and doxy 07/25 -unable to tolerate by mouth antibiotics doxycycline and Augmentin, therefore on IV doxycycline and po Augmentin -minimize narcotics due to nausea #abdominal pain likely multifactorial due to antibiotics, narcotics and BARTOLO continue conservative management, minimize narcotics. # acute kidney injury creatinine bumped from 0.61-2.02> 2.99>3.08 due to vanco toxicity, vanco discontinued ,on IV fluids due to decreased by mouth intake, with persistent nausea and abdominal discomfort follow BMP, case discussed with Nephrology, if creatinine remains same or trending down will be discharged home with outpatient follow-up with Dr. Moreno in 1 week # acute normocytic anemia likely dilutional and due to infection, no GI bleed, follow CBC. # mild intermittent asthma -no acute exacerbation, albuterol p.r.n. # obesity -weight loss efforts encouraged DVT prophylaxis-compression, early ambulation Full code Patient requires continued inpatient hospitalization for acute kidney injury and for management of cellulitis and follow-up on cultures and renal function. Quality Stroke Does the patient have a stroke diagnosis?: No VTE Prior VTE?: No VTE Risk Level:: Medical - moderate - high VTE Device Contraindication: N/A - Device Ordered VTE Drug Contraindication: Treatment Not Indicated
[2023-07-28] MEDS: Metoclopramide HCl 10 MG/2 ML VIAL 5 MG IVPUSH (11:44)
[2023-07-28] MEDS: Dicyclomine HCl 10 MG CAPSULE PO (11:44)
--- NOTE | 2023-07-28 15:32 | PC.NURSE ---
Pt with abdominal pain and bloating, nausea. Vomiting mostly anything she tries to eat or drink. Oxycodone d/c'd. Bentyl ordered and given with partial effect. Reglan ordered and given with good effect. Encouraged ambulation. Ambulated in meraz in afternoon. Encouraged PO fluids.
[2023-07-28 15:35] VITALS: BP 123/74; PULSE 68; RESP 18; TEMP 36.7; O2SAT 100
[2023-07-28] MEDS: 0.9 % Sodium Chloride Flush 3 ML SYRINGE IVFLUSH (16:19)
--- NOTE | 2023-07-28 16:28 | PC.NURSE ---
Addendum entered by Rekha Guerrero RN 07/28/23 16:45: patient seen and evaluated by dr. Anton Original Note: Patient c/o abdominal pain ,left lower back pain and right lower back pain Dr. Anton made aware
[2023-07-28] MEDS: Acetaminophen 325 MG TABLET 650 MG PO (16:46)
[2023-07-28 19:56] VITALS: BP 128/81; PULSE 82; RESP 16; TEMP 36; O2SAT 99
[2023-07-28] MEDS: Docusate Sodium 100 MG CAPSULE PO (20:26)
[2023-07-28] MEDS: Amoxicillin/Potassium Clav 500 MG TABLET PO (20:26)
[2023-07-29] MEDS: HYDROmorphone HCl 1 MG/ML SYRINGE 0.25 MG IVPUSH ×2 (01:00→09:01)
[2023-07-29] MEDS: 0.9 % Sodium Chloride Flush 3 ML SYRINGE IVFLUSH ×2 (01:00→09:01)
[2023-07-29 03:37] VITALS: BP 126/80; PULSE 83; RESP 18; TEMP 36.2; O2SAT 98
[2023-07-29 06:44] LABS: Hematocrit 32.8 % (37.0-47.0); Hemoglobin 11.3 g/dl (12.0-16.0); Mean Corpuscular HGB Conc 34.5 g/dl (31.0-35.0); Mean Corpuscular Hemoglobin 31.3 pg (27.0-33.0); Mean Corpuscular Volume 90.9 fL (80.0-98.0); Platelet Count 138 X10*3/uL (160-400); Red Blood Count 3.61 X10*6/uL (4.20-5.50); White Blood Count 9.7 X10*3/uL (4.8-10.8)
[2023-07-29 06:58] LABS: Anion Gap 14 (12-20); Blood Urea Nitrogen 16 mg/dL (9-16); Calcium 8.5 mg/dL (8.4-10.2); Carbon Dioxide 19 mmol/L (22-29); Chloride 115 mmol/L (96-108); Creatinine Clr Calc Pharmacy 24.7; Estimated Glomerular Filt Rate 18; Glucose Random 97 mg/dL (60-115); Sodium 144 mmol/L (135-145)
[2023-07-29 08:00] VITALS: BP 131/69; PULSE 58; RESP 12; TEMP 36.5; O2SAT 99
[2023-07-29 09:01] VITALS: RESP 16
[2023-07-29] MEDS: Famotidine 20 MG TABLET PO (09:04)
[2023-07-29] MEDS: Amoxicillin/Potassium Clav 500 MG TABLET PO (09:04)
[2023-07-29] MEDS: Doxycycline Hyclate 100 MG in 0.9 % Sodium Chloride 250 ML 166.67 MG IV (09:05)
[2023-07-29] MEDS: Calcium Carbonate 750 MG TAB.CHEW PO (10:21)
[2023-07-29] MEDS: Metoclopramide HCl 10 MG/2 ML VIAL 5 MG IVPUSH (10:21)
--- NOTE | 2023-07-29 10:33 | P.DS_ITS ---
DS: Providers Provider Date of Service: 07/29/23 Date of admission: 07/24/23 20:01 Date of discharge: 07/29/23 Primary care physician: None Physician Consults: 07/25/23 08:22 Consult to Obstetrics / Gynecology Routine Consulting Provider: Genaro Johnson Reason for consultation: rt labial cyst/abscess Has provider been notified: No 07/26/23 07:59 Consult to Nephrology Routine Consulting Provider: [facility] [place] [facility] Reason for consultation: bartolo Has provider been notified: No DS: Diagnosis Discharge Diagnosis (1) Abscess of labia: Status: Acute (2) Cellulitis of labia: Status: Acute (3) BARTOLO (acute kidney injury): Status: Acute (4) Sepsis: Status: Acute DS: Summary Hospital Course Hospital Course: From the history and physical by the admitting hospitalist, AKANKSHA Booker, 07/24/23: 37-year-old female with history of mild intermittent asthma, GERD, obesity presents to the ED for evaluation of labial pain and swelling that has been ongoing for 4 days. Reports about 4 days ago had a tiny pustule on the right labia that has resulted in significant swelling and pain that is limiting her ability to walk secondary to the pain intensity. She denies any vaginal discharge or purulent drainage from the area. She has been using warm compresses with limited relief. States she has had recurrent Bartholin's cyst/abscesses that have required draining in the past. She denies any fevers or chills. No nausea or vomiting. She did recently shaved her perineum. On arrival, patient with mild tachycardia into the 90s. She is afebrile with otherwise stable vital signs. There is a leukocytosis of 12.8. Renal function and electrolyte levels normal. Lactic acid 1.1. Pelvis ultrasound pending but wet read does show probable 2 cm x 1 cm abscess, possibly of right Bartholin's gland. In the ED, has been given IV Zosyn, vancomycin, fentanyl. Bedside I and D was attempted without any drainage obtained. Case was discussed with dispatcher radio recommending admission for IV antibiotics and drainage given presence of abscess. 37-year-old female with history of mild intermittent asthma, GERD, obesity admitted for further management of extensive cellulitis with abscess of the labia with sepsis. She was admitted to the medical-surgical unit and treated with IV vancomycin and piperacillin-tazobactam. [facility] was consulted and Dr Genaro Johnson performed a bedside I+D on 07/25/23. Blood cultures were negative and wound culture grew Corynebacterium, which is usually a normal skin bacteria. Hospitalization was complicated by BARTOLO thought to be due to vancomycin toxicity by the nephrology risk consultant. Vancomycin and piperacillin-tazobactam were discontinued and the patient was placed on doxycycline and amoxicillin- clavulanate. Creatinine plateaued around 3. She was discharged home doxycycline monohydrate 100 mg twice daily PLUS amoxicillin-clavulanate 875-125 mg twice daily for 3 days and should repeat BMP in 4 days and follow up with Dr Deniz Dang from Nephrology in [address] Johnson from [facility] in 1 week. Time Attestation Discharge Coordination Time (in mins): 35 Quality: Safe Use of Opioids Does Pt have an Active Cancer Diagnosis on the Problem List?: No Quality: Stroke Does the patient have a stroke diagnosis?: No Physical Exam Vital Signs: Vital Signs: Last Vital Signs Temp 97.7 F 07/29/23 08:00 Pulse 58 07/29/23 08:00 Resp 16 07/29/23 09:01 BP 131/69 07/29/23 08:00 Pulse Ox 99 07/29/23 08:00 O2 Del Method Room Air 07/29/23 08:00 BMI result Body Mass Index 35.3 Gen: in no acute distress HEENT: sclera anicteric, moist mucus membranes Neck: supple Lungs: clear to auscultation bilaterally Heart: regular rate and rhythm, no murmurs Abd: soft, non-tender, non-distended Ext: no edema Skin: warm/well-perfused Neuro: alert and oriented x3, no focal findings Psych: appropriate affect DS: Data Data Completed and Pending Completed studies during hospitalization [Text1]: \ Laboratory Results WBC 9.7 X10*3/uL (4.8-10.8) 07/29/23 05:32 RBC 3.61 X10*6/uL (4.20-5.50) L 07/29/23 05:32 Hgb 11.3 g/dl (12.0-16.0) L 07/29/23 05:32 Hct 32.8 % (37.0-47.0) L 07/29/23 05:32 MCV 90.9 fL (80.0-98.0) 07/29/23 05:32 MCH 31.3 pg (27.0-33.0) 07/29/23 05:32 MCHC 34.5 g/dl (31.0-35.0) 07/29/23 05:32 RDW 13.0 % (11.0-16.0) 07/29/23 05:32 Plt Count 138 X10*3/uL (160-400) L 07/29/23 05:32 MPV 12.0 fL (9.4-12.3) 07/29/23 05:32 Immature Gran % (Auto) 0.5 % (0.0-0.4) H 07/25/23 05:18 Neut % (Auto) 83.9 % (45-73) H 07/25/23 05:18 Lymph % (Auto) 7.3 % (20-40) L 07/25/23 05:18 [place] % (Auto) 7.4 % (2-11) 07/25/23 05:18 Eos % (Auto) 0.7 % (0-4) 07/25/23 05:18 Baso % (Auto) 0.2 % (0-2) 07/25/23 05:18 Lymph # (Auto) 1.0 X10*3/uL (1.2-4.9) L 07/25/23 05:18 [place] # (Auto) 1.0 X10*3/uL (0.1-1.2) 07/25/23 05:18 Eos # (Auto) 0.1 X10*3/uL (0.0-0.4) 07/25/23 05:18 Baso # (Auto) 0.0 X10*3/uL (0.0-0.2) 07/25/23 05:18 Abs Immat Gran (auto) 0.06 X10*3/uL (0.00-0.03) H 07/25/23 05:18 Absolute Neuts (auto) 11.0 x10*3/uL (2.0-8.3) H 07/25/23 05:18 Absolute Nucleated RBC 0.000 X10*3/uL (0.0-0.012) 07/29/23 05:32 Nucleated RBC % (auto) 0.0 /100WBC (0.0-0.2) 07/29/23 05:32 Sodium 144 mmol/L (135-145) 07/29/23 05:32 Potassium 4.0 mmol/L (3.3-5.1) 07/29/23 05:32 Chloride 115 mmol/L (96-108) H 07/29/23 05:32 Carbon Dioxide 19 mmol/L (22-29) L 07/29/23 05:32 Anion Gap 14 (12-20) 07/29/23 05:32 BUN 16 mg/dL (9-16) 07/29/23 05:32 Creatinine 2.96 mg/dL (0.5-1.4) H 07/29/23 05:32 Estim Creat Clear Calc 24.7 07/29/23 05:32 Estimated GFR 18 07/29/23 05:32 Random Glucose 97 mg/dL (60-115) 07/29/23 05:32 Lactic Acid 1.1 mmol/L (0.5-2.0) 07/24/23 19:09 Calcium 8.5 mg/dL (8.4-10.2) 07/29/23 05:32 Magnesium 1.9 mg/dL (1.6-2.6) 07/24/23 19:10 Total Bilirubin 0.6 mg/dL (0.0-1.0) 07/24/23 19:10 AST 12 U/L (5-31) 07/24/23 19:10 ALT 12 U/L (0-31) 07/24/23 19:10 Alkaline Phosphatase 75 U/L (39-117) 07/24/23 19:10 Total Protein 7.3 g/dL (6.5-8.0) 07/24/23 19:10 Albumin 4.0 g/dL (3.5-5.0) 07/24/23 19:10 Nasal Screen MRSA (PCR) NEGATIVE (Negative) 07/26/23 12:31 Nasal S. aureus Screen NEGATIVE (Negative) 07/26/23 12:31 Nasal MRSA/S.aureus Interp SEE NOTE 07/26/23 12:31 Random Vancomycin 18.7 mcg/mL (15-20) 07/27/23 18:10 Complement C3 131 mg/dL (83-193) 07/27/23 06:07 Complement C4 33 mg/dL (15-57) 07/27/23 06:07 Impressions Pelvis Ultrasound 07/24/23 19:38 IMPRESSION: Thick-walled cystic mass in the left labia. Differential diagnosis would include most likely a complex Bartholin's gland cyst or abscess - much less likely a cystic neoplasm. Discharge Plan Discharge Anticipated Discharge Date/Time: 07/29/23 10:27 Patient Disposition: Home, Self-Care Discharge Diagnosis: labial abscess acute kidney injury Referrals: Deniz Dang MD [Physician] - 1 Week Physician,Lucia [Primary Care Provider] - 1 Week Genaro Johnson MD [Physician] - 1 Week Discharge Medications: New amoxicillin-pot clavulanate 500-125 mg Tablet 1 tab PO Q12H Qty: 6 0RF doxycycline monohydrate 100 mg tablet 100 mg PO BID Qty: 6 0RF ondansetron 4 mg tablet,disintegrating 4 mg PO Q8H PRN (Reason: nausea and vomiting) Qty: 14 0RF oxycodone 5 mg tablet 5 mg PO Q8H PRN (Reason: severe pain) Qty: 10 0RF Rx Instructions: Partial Fill upon patient request. Discharge Orders: Discharge Order (Routine); Ordered 07/29/23 Ordered By: Filipe Shin Diet: Advance to usual diet Activity on Discharge: As tolerated Stand Alone Forms: Patient Portal Discharge page Print Language: Chadian Other Ambulatory Orders: Basic Metabolic Panel (Routine) Timeframe: [id number] Facility: [facility] - Location: Laboratory Ordered By: Filipe Shin Care Plan Goals: cure of infection renal recovery Health Concerns: labial abscess acute kidney injury Plan of Treatment: Avoid ibuprofen/Motrin/Advil, naproxen/Aleve, and other NSAIDs For pain control, take acetaminophen/Tylenol; oxycodone for severe pain Drink plenty of fluid Repeat labs [basic metabolic panel] in 4 days Follow up with salon/spa manager at [facility] [place] [Dr Deniz Dang] in 1 week Take antibiotics for 3 days: doxycycline 100 mg twice daily PLUS amoxicillin- clavulanate 500-125 mg twice daily Take ondansetron as needed for nausea/vomiting Follow up with oil well service unit operator at [facility] [place] [Dr Genaro Zerbe] in 1 week Establish primary care as soon as possible Assessment: See Discharge Summary.
--- NOTE | 2023-07-29 10:36 | MHC.CM.PN ---
PT WILL DC HOME TODAY WITH NO SERVICES VIA PRIVATE TRANSPORT
== END 2023-07-29 12:09 | disposition home or self-care (01) | DRG 720 ==
LOC: HO.ED 19:59 → HO.EDOVER 20:08 → HO.S3 22:11
PROVIDERS: Hospitalist; Internal Medicine Nephrology; Physician Assistant; Admitting Provider Physician Assistant; Emergency Provider Internal Medicine; Visit Provider Family Medicine
DX: A41.9 Sepsis, unspecified organism (principal); N17.9 Acute kidney failure, unspecified; T36.8X5A Adverse effect of other systemic antibiotics, initial encounter; D64.9 Anemia, unspecified; E66.9 Obesity, unspecified; N76.4 Abscess of vulva; J45.20 Mild intermittent asthma, uncomplicated; N76.2 Acute vulvitis; Z68.35 Body mass index [BMI] 35.0-35.9, adult
CPT/HCPCS: 36415; 76857; 80048; 80053; 80202; 83605; 83735; 85025; 85027; 86160; 87040; 87070; 87205; 87640; 87641; 99285; J1170; J1200; J2405; J2543; J2765; J3010; J3370; J3371; J7120

== ENCOUNTER → 2023-07-24 20:01 | Outpatient (BNV) | payer MEDICAID, SELFPAY | PROVIDERS: Admitting Provider Physician Assistant; Emergency Provider Internal Medicine; Visit Provider Obstetrics & Gynecology | DX: N76.2 Acute vulvitis (principal); N76.4 Abscess of vulva | CPT/HCPCS: 56405; 99222 ==

== ENCOUNTER → 2023-07-24 20:01 | Outpatient (BNV) | payer MEDICAID, SELFPAY | PROVIDERS: Admitting Provider Physician Assistant; Emergency Provider Internal Medicine; Visit Provider Internal Medicine Nephrology | DX: N17.9 Acute kidney failure, unspecified (principal) | CPT/HCPCS: 99222; 99232 ==

== ENCOUNTER → 2023-07-24 20:01 | Outpatient (BNV) | payer MEDICAID, SELFPAY | PROVIDERS: Admitting Provider Physician Assistant; Emergency Provider Internal Medicine; Visit Provider Physician Assistant | DX: N76.4 Abscess of vulva (principal); N76.2 Acute vulvitis; N17.9 Acute kidney failure, unspecified; A41.9 Sepsis, unspecified organism | CPT/HCPCS: 99222; 99232; 99239 ==

== ENCOUNTER 2023-08-02 10:07 | Outpatient (REF) | payer MEDICAID, SELFPAY ==
[2023-08-02 12:35] LABS: Anion Gap 15 (12-20); Blood Urea Nitrogen 22 mg/dL (9-16); Calcium 9.3 mg/dL (8.4-10.2); Carbon Dioxide 23 mmol/L (22-29); Chloride 110 mmol/L (96-108); Estimated Glomerular Filt Rate 20; Glucose Random 109 mg/dL (60-115); Potassium 4.1 mmol/L (3.3-5.1); Sodium 144 mmol/L (135-145)
== END 2023-08-02 10:08 | disposition home or self-care (01) ==
LOC: HO.LAB 10:07
PROVIDERS: Visit Provider Family Medicine
DX: N17.9 Acute kidney failure, unspecified (principal)
CPT/HCPCS: 36415; 80048